=== PATIENT | male | born 1935 | race Caucasian/White ===

== ENCOUNTER 2017-12-17 11:59 | Observation (INO) | payer MEDICARE ==
[2017-12-17] MEDS ORDERED: NITROGLYCERIN OINT 1 INCH/GM PACKET TOPICAL STA (12:24)
[2017-12-17] MEDS ORDERED: ASPIRIN 81 MG PO STA (12:24)
--- NOTE | 2017-12-17 12:27 | ED ---
General Adult HPI - General Chief complaint: Chest Pain Stated complaint: Chest Pain Time Seen by Provider: 12/17/17 12:08 Source: patient, EMS, RN notes reviewed Mode of arrival: EMS Limitations: no limitations - History of Present Illness Initial comments: Patient is a pleasant 81-year-old male presenting to the emergency department and plan of chest discomfort. Symptoms have now resolved. Patient states symptoms lasted less than a minute. Patient had indigestion in his chest. Patient states it was on the left side however previous report stated he complained of right-sided chest discomfort. Patient is unclear what he was doing at time of onset. No associated dyspnea, nausea, or diaphoresis. No history of similar symptoms previously. No leg pain or leg swelling. - Related Data Home Medications Medication Instructions Recorded Confirmed Acetaminophen [Tylenol] 500 mg PO Q6H PRN 11/22/17 12/17/17 Aspirin EC [Ecotrin] 325 mg PO HS 11/22/17 12/17/17 Atorvastatin [Lipitor] 20 mg PO HS 11/22/17 12/17/17 Calcium Carbonate [Tums] 1,000 mg PO TID PRN 11/22/17 12/17/17 Donepezil [Aricept] 5 mg PO HS 11/22/17 12/17/17 Fexofenadine HCl 180 mg PO DAILY 11/22/17 12/17/17 Furosemide [Lasix] 40 mg PO DAILY 11/22/17 12/17/17 Gemfibrozil [Lopid] 600 mg PO BID@0700,1600 11/22/17 12/17/17 Lisinopril [Zestril] 20 mg PO DAILY 11/22/17 12/17/17 Melatonin 5 mg PO HS 11/22/17 12/17/17 Metoprolol Succinate (ER) [Toprol 50 mg PO DAILY 11/22/17 12/17/17 XL] Multivit-Min/FA/Lycopen/Lutein 1 tab PO DAILY@1100 11/22/17 12/17/17 [Centrum Silver Tablet] Omeprazole 20 mg PO DAILY@0600 11/22/17 12/17/17 Ondansetron HCl [Zofran] 4 mg PO Q8H PRN 11/22/17 12/17/17 Potassium Chloride [K-Tab ER] 10 meq PO DAILY@1100 11/22/17 12/17/17 Sucralfate [Carafate] 1 gm PO ACHS 11/22/17 12/17/17 Previous Rx's Medication Instructions Recorded Ipratropium-Albuterol Nebulize 3 ml INHALATION RT-QID #120 11/27/17 [Duoneb 0.5 mg-3 mg/3 ml Soln] ampul.neb Montelukast [Singulair] 10 mg PO HS #30 tab 11/27/17 Allergies Allergy/AdvReac Type Severity Reaction Status Date / Time allopurinol Allergy Rash/Hives Verified 12/17/17 12:19 Penicillins Allergy Unknown Verified 12/17/17 12:19 Sulfa (Sulfonamide Allergy Unknown Verified 12/17/17 12:19 Antibiotics) Review of Systems ROS Statement: Those systems with pertinent positive or pertinent negative responses have been documented in the HPI. ROS Other: All systems not noted in ROS Statement are negative. Constitutional: Denies: fever Eyes: Denies: eye pain ENT: Denies: ear pain Respiratory: Denies: cough, dyspnea Cardiovascular: Reports: chest pain. Denies: palpitations Endocrine: Denies: fatigue Gastrointestinal: Denies: abdominal pain Genitourinary: Denies: dysuria Musculoskeletal: Denies: back pain Skin: Denies: rash Neurological: Denies: weakness Past Medical History Past Medical History: Coronary Artery Disease (CAD), Dementia, Hyperlipidemia, Hypertension History of Any Multi-Drug Resistant Organisms: None Reported Additional Past Surgical History / Comment(s): Hole in heart repaired Past Psychological History: No Psychological Hx Reported Smoking Status: Never smoker Past Alcohol Use History: None Reported Past Drug Use History: None Reported - Past Family History Brother(s) Family Medical History: Hypertension General Exam Limitations: no limitations General appearance: alert, in no apparent distress Head exam: Present: atraumatic Eye exam: Present: normal appearance, PERRL ENT exam: Present: normal oropharynx Neck exam: Present: normal inspection Respiratory exam: Present: normal lung sounds bilaterally Cardiovascular Exam: Present: regular rate, normal rhythm, systolic murmur Expanded Peripheral pulses: 2+: Radial (R), Radial (L), Posterior Tibialis (R), Posterior Tibialis (L) GI/Abdominal exam: Present: soft. Absent: tenderness Extremities exam: Present: normal inspection. Absent: pedal edema, calf tenderness Neurological exam: Present: alert Psychiatric exam: Present: normal affect, normal mood Skin exam: Present: normal color Course Vital Signs 12/17/17 12/17/17 12/17/17 12:01 12:12 13:30 Temperature 97.1 F L Pulse Rate 92 94 Pulse Rate [ 92 Pathological Technician ] Respiratory 18 18 Rate Blood Pressure 140/92 118/77 O2 Sat by Pulse 95 99 Oximetry EKG Findings - EKG Comments: EKG Findings:: normal sinus rhythm 98. ME 188. QRS 106. QT 358. QTC 457. Left axis. LVH criteria. No acute ST change. Medical Decision Making - Medical Decision Making patient reevaluated and resting comfortably in bed. Patient symptom-free at this time. Patient and family updated on results and plan. Case was discussed in detail with Dr. Parks, who will admit for Dr. Schmidt. She does request consult with cardiology and heparin. - Lab Data Result diagrams: 12/17/17 12:09 12/17/17 12:09 Lab Results 12/17/17 12/17/17 12/17/17 Range/Units 12:09 12:09 12:09 WBC 6.1 (3.8-10.6) k/uL RBC 4.71 (4.30-5.90) m/uL Hgb 15.2 (13.0-17.5) gm/dL Hct 45.5 (39.0-53.0) % MCV 96.6 (80.0-100.0) fL MCH 32.3 (25.0-35.0) pg MCHC 33.5 (31.0-37.0) g/dL RDW 13.9 (11.5-15.5) % Plt Count 266 (150-450) k/uL Neutrophils % 63 % Lymphocytes % 19 % Monocytes % 6 % Eosinophils % 7 % Basophils % 1 % Neutrophils # 3.9 (1.3-7.7) k/uL Lymphocytes # 1.2 (1.0-4.8) k/uL Monocytes # 0.4 (0-1.0) k/uL Eosinophils # 0.5 (0-0.7) k/uL Basophils # 0.1 (0-0.2) k/uL PT (9.0-12.0) sec INR (<1.2) APTT (22.0-30.0) sec D-Dimer (<0.60) mg/L FEU Sodium 141 (137-145) mmol/L Potassium 4.1 (3.5-5.1) mmol/L Chloride 98 (98-107) mmol/L Carbon Dioxide 31 H (22-30) mmol/L Anion Gap 12 mmol/L BUN 25 H (9-20) mg/dL Creatinine 1.17 (0.66-1.25) mg/dL Est GFR (MDRD) Af Amer >60 (>60 ml/min/1.73 sqM) Est GFR (MDRD) Non-Af 60 (>60 ml/min/1.73 sqM) Glucose 106 H (74-99) mg/dL Calcium 10.7 H (8.4-10.2) mg/dL Magnesium 1.7 (1.6-2.3) mg/dL Total Bilirubin 0.6 (0.2-1.3) mg/dL AST 26 (17-59) U/L ALT 31 (21-72) U/L Alkaline Phosphatase 89 (38-126) U/L Total Creatine Kinase 38 L (55-170) U/L CK-MB (CK-2) 0.4 (0.0-2.4) ng/mL CK-MB (CK-2) Rel Index 1.1 Troponin I <0.012 (0.000-0.034) ng/mL Total Protein 7.0 (6.3-8.2) g/dL Albumin 4.1 (3.5-5.0) g/dL 12/17/17 Range/Units 12:09 WBC (3.8-10.6) k/uL RBC (4.30-5.90) m/uL Hgb (13.0-17.5) gm/dL Hct (39.0-53.0) % MCV (80.0-100.0) fL MCH (25.0-35.0) pg MCHC (31.0-37.0) g/dL RDW (11.5-15.5) % Plt Count (150-450) k/uL Neutrophils % % Lymphocytes % % Monocytes % % Eosinophils % % Basophils % % Neutrophils # (1.3-7.7) k/uL Lymphocytes # (1.0-4.8) k/uL Monocytes # (0-1.0) k/uL Eosinophils # (0-0.7) k/uL Basophils # (0-0.2) k/uL PT 12.2 H (9.0-12.0) sec INR 1.3 H (<1.2) APTT 28.3 (22.0-30.0) sec D-Dimer 0.57 (<0.60) mg/L FEU Sodium (137-145) mmol/L Potassium (3.5-5.1) mmol/L Chloride (98-107) mmol/L Carbon Dioxide (22-30) mmol/L Anion Gap mmol/L BUN (9-20) mg/dL Creatinine (0.66-1.25) mg/dL Est GFR (MDRD) Af Amer (>60 ml/min/1.73 sqM) Est GFR (MDRD) Non-Af (>60 ml/min/1.73 sqM) Glucose (74-99) mg/dL Calcium (8.4-10.2) mg/dL Magnesium (1.6-2.3) mg/dL Total Bilirubin (0.2-1.3) mg/dL AST (17-59) U/L ALT (21-72) U/L Alkaline Phosphatase (38-126) U/L Total Creatine Kinase (55-170) U/L CK-MB (CK-2) (0.0-2.4) ng/mL CK-MB (CK-2) Rel Index Troponin I (0.000-0.034) ng/mL Total Protein (6.3-8.2) g/dL Albumin (3.5-5.0) g/dL - Radiology Data Radiology results: report reviewed (chest x-ray is unable to be visualized. Radiology report: Correlate for atelectasis versus scarring versus pneumonia.) Disposition Clinical Impression: Chest pain Disposition: ADMITTED IP TO THIS [facility] Referrals: Chava Schmidt MD [Primary Care Provider] - 1-2 days Decision Time: 14:18
[2017-12-17 12:55] LABS: Basophils # (A) 0.1 k/uL (0-0.2); Basophils % (A) 1 %; Eosinophils # (A) 0.5 k/uL (0-0.7); Eosinophils % (A) 7 %; HCT 45.5 % (39.0-53.0); HGB 15.2 gm/dL (13.0-17.5); Lymphocytes # (A) 1.2 k/uL (1.0-4.8); Lymphocytes % (A) 19 %; MCH 32.3 pg (25.0-35.0); MCHC 33.5 g/dL (31.0-37.0); MCV 96.6 fL (80.0-100.0); Mean Platelet Volume 7.4; Monocytes # (A) 0.4 k/uL (0-1.0); Monocytes % (A) 6 %; Neutrophils # (A) 3.9 k/uL (1.3-7.7); Neutrophils % (A) 63 %; Platelet Count 266 k/uL (150-450); RBC 4.71 m/uL (4.30-5.90); RDW 13.9 % (11.5-15.5); WBC 6.1 k/uL (3.8-10.6)
[2017-12-17 13:06] LABS: D-Dimer 0.57 mg/L FEU (<0.60)
[2017-12-17 13:10] LABS: INR 1.3 (<1.2); Partial Thromboplastin Time 28.3 sec (22.0-30.0); Prothrombin Time 12.2 sec (9.0-12.0)
[2017-12-17 13:12] LABS: Creatine Kinase 38 U/L (55-170)
[2017-12-17 13:13] LABS: ALT 31 U/L (21-72); AST 26 U/L (17-59); Albumin 4.1 g/dL (3.5-5.0); Alkaline Phosphatase 89 U/L (38-126); Anion Gap 12 mmol/L; Blood Urea Nitrogen 25 mg/dL (9-20); Calcium 10.7 mg/dL (8.4-10.2); Carbon Dioxide 31 mmol/L (22-30); Chloride 98 mmol/L (98-107); Glucose 106 mg/dL (74-99); Magnesium 1.7 mg/dL (1.6-2.3); Potassium 4.1 mmol/L (3.5-5.1); Sodium 141 mmol/L (137-145); Total Bilirubin 0.6 mg/dL (0.2-1.3)
[2017-12-17 13:26] LABS: Creatine Kinase MB 0.4 ng/mL (0.0-2.4); Troponin I <0.012 ng/mL (0.000-0.034)
--- NOTE | 2017-12-17 13:33 | XR ---
EXAMINATION TYPE: XR chest 2V DATE OF EXAM: 12/17/2017 COMPARISON: Prior chest x-ray 11/24/2017, chest CT 11/25/2017 HISTORY: Chest pain TECHNIQUE: Frontal and lateral views of the chest are obtained. FINDINGS: There is no pleural effusion or pneumothorax seen. Chronic elevation right hemidiaphragm is again noted. Patient is rotated. There are overlying cardiac leads. Patchy basilar density may ref lect atelectasis or scarring. The cardiac silhouette size is stable. Atrial septal defect closure dev ice is in place. The osseous structures are intact. IMPRESSION: Correlate for basilar atelectasis or scarring versus pneumonia.
[2017-12-17] MEDS ORDERED: HEPARIN SODIUM,PORCINE 5,000 UNIT/ML 1 ML VIAL IV PRN (14:18)
[2017-12-17] MEDS ORDERED: NITROGLYCERIN SL TABS 0.4 MG TAB SUBLINGUAL PRN (14:18)
[2017-12-17] MEDS ORDERED: HEPARIN SODIUM,PORCINE 5,000 UNIT/ML 1 ML VIAL IV ONE (14:18)
[2017-12-17] MEDS ORDERED: HEPARIN SOD,PORK IN 0.45% NACL 25,000 UNIT in 0.45% NACL 1 500ML.BAG IV SCH (14:30)
[2017-12-17] MEDS ORDERED: ACETAMINOPHEN TAB 500 MG TAB PO PRN (17:40)
[2017-12-17] MEDS ORDERED: CALCIUM CARBONATE 500 MG CHEWABLE PO PRN (17:40)
[2017-12-17] MEDS ORDERED: ONDANSETRON 4 MG TAB PO PRN (17:40)
[2017-12-17] MEDS ORDERED: MAG HYDROX/AL HYDROX/SIMETH 30 ML, HYOSCYAMINE ELIXIR 10 ML, CIMETIDINE HCL 300 MG, LID... PO PRN ×4 (17:49)
[2017-12-17] MEDS ORDERED: IPRATROPIUM-ALBUTEROL 3 ML NEB INHALATION PRN (17:49)
--- NOTE | 2017-12-17 17:52 | P.HPIM ---
History of Present Illness H&P Date: 12/17/17 Chief Complaint: chest pain 81 years old male patient of Dr. 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 Staff present at bedside stated that patient was holding his chest. Symptoms started less than a minute but due to concern of ACS patient was brought to the ER. Patient does have significant reflux and is unclear if it is related to it. He is unable to provide any history at [id number] was called who stated that patient was doing well prior to this chest pain.troponin 1 is negative. EKG is negative for any ST or T-wave changes and some ST depression seen in lead 3. Patient will be admitted in observation. Cardiology consult placed Review of Systems Constitutional: Denies chills, Denies fever, Denies lethargy, Denies malaise, Denies poor appetite, Denies weakness, Denies weight loss Eyes: denies decreased vision, denies diplopia, denies discharge, denies pain Ears: deny: decreased hearing Ears, nose, mouth and throat: Denies dental pain, Denies headache, Denies nasal discharge, Denies nose pain Cardiovascular: endorseschest pain, Denies decreased exercise tolerance, Denies edema, Denies high blood pressure, Denies irregular heart beat, Denies palpitations, Denies paroxysmal nocturnal dyspnea, Denies rapid heart beat, Denies shortness of breath Respiratory: Denies congestion, Denies cough, Denies cough with sputum, Denies dyspnea, Denies home oxygen, Denies wheezing Gastrointestinal: Denies abdominal pain, Denies change in bowel habits, Denies coffee ground emesis, Denies early satiety, , Denies hematemesis, Denies hematochezia, Denies loss of appetite, Denies nausea, Denies vomitingendorses heartburn Genitourinary: Denies dysuria, Denies flank pain, Denies kidney stones, Denies menorrhagia, Denies urgency, Denies urinary frequency Musculoskeletal: Denies gait dysfunction, Denies limitation of motion, Denies morning stiffness, Denies muscle cramps Integumentary: Denies rash, Denies wounds, Denies brittle nails, Denies change in hair/nails, Denies darkening of skin Neurological: Denies balance difficulties, Denies change in speech, Denies double vision, Denies gait dysfunction, Denies loss of vision, Denies motor disturbance, Denies numbness, Denies paralysis, Denies paresthesias, Denies seizures Psychiatric: Denies anxiety, Denies depression Endocrine: Denies excessive sweating, Denies excessive thirst, Denies high blood sugars, Denies palpitations Hematologic/Lymphatic: Denies easy bruising, Denies lymphadenopathy Past Medical History Past Medical History: Coronary Artery Disease (CAD), Cancer, Dementia, GERD/ Reflux, Hyperlipidemia, Hypertension, Osteoarthritis (OA), Pneumonia Additional Past Medical History / Comment(s): hx pfo-had sx,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 gout-allergy to allopurinol, bronchitis, psoriases, prostate cancer 2002(sx and thinks he had raditation ), urinary incont wears a brief. 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 prostatectomy,catarcats Past Anesthesia/Blood Transfusion Reactions: No Reported Reaction Smoking Status: Former smoker - Past Family History Brother(s) Family Medical History: Hypertension Father Family Medical History: Congestive Heart Failure (CHF), Hyperlipidemia, Hypertension, Myocardial Infarction ([place]) Mother Family Medical History: Congestive Heart Failure (CHF), Hyperlipidemia, Hypertension, Myocardial Infarction ([place]) Medications and Allergies Home Medications Medication Instructions Recorded Confirmed Type Acetaminophen [Tylenol] 500 mg PO Q6H PRN 11/22/17 12/17/17 History Aspirin EC [Ecotrin] 325 mg PO HS 11/22/17 12/17/17 History Atorvastatin [Lipitor] 20 mg PO HS 11/22/17 12/17/17 History Calcium Carbonate [Tums] 1,000 mg PO TID PRN 11/22/17 12/17/17 History Donepezil [Aricept] 5 mg PO HS 11/22/17 12/17/17 History Fexofenadine HCl 180 mg PO DAILY 11/22/17 12/17/17 History Furosemide [Lasix] 40 mg PO DAILY 11/22/17 12/17/17 History Gemfibrozil [Lopid] 600 mg PO BID@0700,1600 11/22/17 12/17/17 History Lisinopril [Zestril] 20 mg PO DAILY 11/22/17 12/17/17 History Melatonin 5 mg PO HS 11/22/17 12/17/17 History Metoprolol Succinate (ER) [Toprol 50 mg PO DAILY 11/22/17 12/17/17 History XL] Multivit-Min/FA/Lycopen/Lutein 1 tab PO DAILY@1100 11/22/17 12/17/17 History [Centrum Silver Tablet] Omeprazole 20 mg PO DAILY@0600 11/22/17 12/17/17 History Ondansetron HCl [Zofran] 4 mg PO Q8H PRN 11/22/17 12/17/17 History Potassium Chloride [K-Tab ER] 10 meq PO DAILY@1100 11/22/17 12/17/17 History Sucralfate [Carafate] 1 gm PO ACHS 11/22/17 12/17/17 History Ipratropium-Albuterol Nebulize 3 ml INHALATION RT-QID #120 11/27/17 12/17/17 Rx [Duoneb 0.5 mg-3 mg/3 ml Soln] ampul.neb Montelukast [Singulair] 10 mg PO HS #30 tab 11/27/17 12/17/17 Rx Allergies Allergy/AdvReac Type Severity Reaction Status Date / Time allopurinol Allergy Rash/Hives Verified 12/17/17 12:19 Penicillins Allergy Unknown Verified 12/17/17 12:19 Sulfa (Sulfonamide Allergy Unknown Verified 12/17/17 12:19 Antibiotics) Physical Exam Vitals: Vital Signs Temp Pulse Pulse Resp BP Pulse Ox 12/17/17 15:35 87 16 108/73 95 12/17/17 14:30 91 16 116/78 96 12/17/17 13:30 94 18 118/77 99 12/17/17 12:12 92 12/17/17 12:01 97.1 F L 92 18 140/92 95 Intake and Output 12/17/17 12/17/17 12/17/17 06:59 14:59 22:59 Other: Weight 77.111 kg Patient Weight 12/18/17 06:59 Weight 77.111 kg - Constitutional General appearance: cooperative, no acute distress, obese - EENT Eyes: anicteric sclerae, PERRLA, normal appearance ENT: hearing grossly normal - Neck Neck: no lymphadenopathy, normal ROM, no other, no rigidity, no stridor, no thyromegaly - Respiratory Respiratory: bilateral: CTA, negative: diminished, dullness, rales, rhonchi - Cardiovascular Rhythm: regular Heart sounds: normal: S1, S2 Abnormal Heart Sounds: no systolic murmur, no diastolic murmur, no rub, no S3 Gallop, no S4 Gallop, no click, no other - Gastrointestinal General gastrointestinal: normal bowel sounds, soft - Integumentary Integumentary: no rash - Neurologic Neurologic: CNII-XII intact - Musculoskeletal Musculoskeletal: strength equal bilaterally - Psychiatric Psychiatric: A&O x's 3, appropriate affect Results CBC & Chem 7: 12/17/17 12:09 12/17/17 12:09 Labs: Abnormal Lab Results - Last 24 Hours (Table) 12/17/17 12/17/17 12/17/17 Range/Units 12:09 12:09 12:09 PT 12.2 H (9.0-12.0) sec INR 1.3 H (<1.2) Carbon Dioxide 31 H (22-30) mmol/L BUN 25 H (9-20) mg/dL Glucose 106 H (74-99) mg/dL Calcium 10.7 H (8.4-10.2) mg/dL Total Creatine Kinase 38 L (55-170) U/L Thrombosis Risk Factor Assmnt - DVT/VTE Prophylaxis DVT/VTE Prophylaxis: Pharmacologic Prophylaxis ordered Assessment and Plan Plan: #1 acute chest pain likely atypical. But due to patient's risk factors including hypertension and hyperlipidemia there is calcification and chest CT concerning for coronary artery disease patient will be monitored overnight with troponin repeat EKG in the morning and an echocardiogram. Cardiology consult placed #2 diffuse petechial rash resolved #3 hypertension continue lisinopril #4 coronary artery disease continue metoprolol, aspirin, statin, lisinopril #5 Hyperlipidemia continue atorvastatin 20 mg daily and gemfibrozil 600 mg twice daily #6 Vascular dementia secondary to recurrent stroke #7 short-term memory loss secondary to vascular dementia #8 DVT prophylaxis with heparin every 12 #9 GI prophylaxis with omeprazole 20 mg daily
--- NOTE | 2017-12-17 19:06 | P.CRDCN ---
History of Present Illness Consult date: 12/17/17 Chief complaint: chest pain History of present illness: This is a pleasant 81-year-old male patient with a past medical history significant for hypertension, dyslipidemia, underlying dementia, presented to the hospital complaining of chest discomfort. The patient does have underlying dementia of unknown severity but he seems to be slightly confused when I encountered him tonight. He stated that he was in his usual state of health until early this morning when he ate his breakfast and subsequently started experiencing chest discomfort. He described the discomfort as a burning sensation in the mid of the chest with some radiation to the back. No associated symptoms of shortness of breath, sweating, dizziness or lightheadedness, or syncope. The patient is not aware of any prior history of coronary artery disease. The EKG showed sinus rhythm without any significant ST or T-wave abnormalities. He does have some nonspecific changes inferiorly. The chest x-ray did not show any acute abnormalities. The cardiac enzymes were checked and the first set of troponin came in to be unremarkable but we don't have the subsequent 2 sets of troponin at this point.The patient does have an atrial septal occluder device was identified on the chest x-ray. On physical examination he seems to be slightly confused. No reproducible chest pain. Systolic murmur was identified as well. 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 gout-allergy to allopurinol, bronchitis, psoriases, prostate cancer 2002(sx and thinks he had raditation ), urinary incont wears a brief. 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 prostatectomy,catarcats Past Anesthesia/Blood Transfusion Reactions: No Reported Reaction Smoking Status: Former smoker - Past Family History Brother(s) Family Medical History: Hypertension Father Family Medical History: Congestive Heart Failure (CHF), Hyperlipidemia, Hypertension, Myocardial Infarction ([place]) Mother Family Medical History: Congestive Heart Failure (CHF), Hyperlipidemia, Hypertension, Myocardial Infarction ([place]) Medications and Allergies Home Medications Medication Instructions Recorded Confirmed Type Acetaminophen [Tylenol] 500 mg PO Q6H PRN 11/22/17 12/17/17 History Aspirin EC [Ecotrin] 325 mg PO HS 11/22/17 12/17/17 History Atorvastatin [Lipitor] 20 mg PO HS 11/22/17 12/17/17 History Calcium Carbonate [Tums] 1,000 mg PO TID PRN 11/22/17 12/17/17 History Donepezil [Aricept] 5 mg PO HS 11/22/17 12/17/17 History Fexofenadine HCl 180 mg PO DAILY 11/22/17 12/17/17 History Furosemide [Lasix] 40 mg PO DAILY 11/22/17 12/17/17 History Gemfibrozil [Lopid] 600 mg PO BID@0700,1600 11/22/17 12/17/17 History Lisinopril [Zestril] 20 mg PO DAILY 11/22/17 12/17/17 History Melatonin 5 mg PO HS 11/22/17 12/17/17 History Metoprolol Succinate (ER) [Toprol 50 mg PO DAILY 11/22/17 12/17/17 History XL] Multivit-Min/FA/Lycopen/Lutein 1 tab PO DAILY@1100 11/22/17 12/17/17 History [Centrum Silver Tablet] Omeprazole 20 mg PO DAILY@0600 11/22/17 12/17/17 History Ondansetron HCl [Zofran] 4 mg PO Q8H PRN 11/22/17 12/17/17 History Potassium Chloride [K-Tab ER] 10 meq PO DAILY@1100 11/22/17 12/17/17 History Sucralfate [Carafate] 1 gm PO ACHS 11/22/17 12/17/17 History Ipratropium-Albuterol Nebulize 3 ml INHALATION RT-QID #120 11/27/17 12/17/17 Rx [Duoneb 0.5 mg-3 mg/3 ml Soln] ampul.neb Montelukast [Singulair] 10 mg PO HS #30 tab 11/27/17 12/17/17 Rx Allergies Allergy/AdvReac Type Severity Reaction Status Date / Time allopurinol Allergy Rash/Hives Verified 12/17/17 12:19 Penicillins Allergy Unknown Verified 12/17/17 12:19 Sulfa (Sulfonamide Allergy Unknown Verified 12/17/17 12:19 Antibiotics) Physical Exam Vitals: Vital Signs Temp Pulse Pulse Pulse Resp BP BP 12/17/17 18:46 97.6 F 97 16 143/95 12/17/17 18:00 97.9 F 81 16 145/89 12/17/17 15:35 87 16 108/73 12/17/17 14:30 91 16 116/78 12/17/17 13:30 94 18 118/77 12/17/17 12:12 92 12/17/17 12:01 97.1 F L 92 18 140/92 Pulse Ox 12/17/17 18:46 93 L 12/17/17 18:00 96 12/17/17 15:35 95 12/17/17 14:30 96 12/17/17 13:30 99 12/17/17 12:12 12/17/17 12:01 95 Intake and Output 12/17/17 12/17/17 12/17/17 06:59 14:59 22:59 Other: Weight 77.111 kg Patient Weight 12/18/17 06:59 Weight 77.111 kg - Constitutional General appearance: no acute distress - Respiratory Respiratory: bilateral: rales - Cardiovascular Rhythm: regular Heart sounds: normal: S1, S2 Abnormal Heart Sounds: systolic murmur Results 12/17/17 12:09 12/17/17 12:09 Cardiac Enzymes 12/17/17 12/17/17 Range/Units 12:09 12:09 AST 26 (17-59) U/L CK-MB (CK-2) 0.4 (0.0-2.4) ng/mL Troponin I <0.012 (0.000-0.034) ng/mL Coagulation 12/17/17 Range/Units 12:09 PT 12.2 H (9.0-12.0) sec APTT 28.3 (22.0-30.0) sec CBC 12/17/17 Range/Units 12:09 WBC 6.1 (3.8-10.6) k/uL RBC 4.71 (4.30-5.90) m/uL Hgb 15.2 (13.0-17.5) gm/dL Hct 45.5 (39.0-53.0) % Plt Count 266 (150-450) k/uL Comprehensive Metabolic Panel 12/17/17 Range/Units 12:09 Sodium 141 (137-145) mmol/L Potassium 4.1 (3.5-5.1) mmol/L Chloride 98 (98-107) mmol/L Carbon Dioxide 31 H (22-30) mmol/L BUN 25 H (9-20) mg/dL Creatinine 1.17 (0.66-1.25) mg/dL Glucose 106 H (74-99) mg/dL Calcium 10.7 H (8.4-10.2) mg/dL AST 26 (17-59) U/L ALT 31 (21-72) U/L Alkaline Phosphatase 89 (38-126) U/L Total Protein 7.0 (6.3-8.2) g/dL Albumin 4.1 (3.5-5.0) g/dL Current Medications Generic Name Dose Route Start Last Admin Trade Name Freq PRN Reason Stop Dose Admin Acetaminophen 500 mg 12/17/17 17:40 Tylenol Tab PO Q6H PRN Mild Pain Albuterol/Ipratropium 3 ml 12/17/17 20:00 Duoneb 0.5 Mg-3 Mg/3 Ml Soln INHALATION RT-QID [facility] Albuterol/Ipratropium 3 ml 12/17/17 17:49 Duoneb 0.5 Mg-3 Mg/3 Ml Soln INHALATION RT-QID PRN Shortness Of Breath Aspirin 325 mg 12/17/17 21:00 Aspirin PO HS [facility] Atorvastatin Calcium 40 mg 12/17/17 21:00 Lipitor PO HS [facility] Calcium Carbonate/Glycine 1,000 mg 12/17/17 17:40 Tums PO TID PRN GERD Al Hydroxide/Mg Hydroxide 30 0 ml 12/17/17 17:49 ml/ Hyoscyamine 10 ml/ PO Cimetidine HCl 300 mg/ Q6HR PRN Lidocaine HCl 10 ml Heartburn Donepezil HCl 5 mg 12/17/17 21:00 Aricept PO HS [facility] Furosemide 40 mg 12/18/17 09:00 Lasix PO DAILY [facility] Gemfibrozil 600 mg 12/18/17 07:00 Lopid PO BID@0700,1600 [facility] Guaifenesin 600 mg 12/17/17 21:00 Mucinex PO Q12HR [facility] Heparin Sodium (Porcine) 5,000 unit 12/17/17 21:00 Heparin SQ Q12HR [facility] Lisinopril 20 mg 12/18/17 09:00 Zestril PO DAILY [facility] Loratadine 10 mg 12/18/17 09:00 Claritin PO DAILY [facility] Melatonin 5 mg 12/17/17 21:00 Melatonin PO HS [facility] Metoprolol Succinate 50 mg 12/17/17 17:45 Toprol Xl PO DAILY [facility] Montelukast Sodium 10 mg 12/17/17 21:00 Singulair PO HS [facility] Multivitamins 1 each 12/18/17 12:00 Theragran PO DAILY@1200 [facility] Nitroglycerin 0.5 inch 12/17/17 18:00 Nitro-Bid Oint TOPICAL Q6HR [facility] Nitroglycerin 0.4 mg 12/17/17 14:18 Nitrostat SUBLINGUAL Q5M PRN Chest Pain Ondansetron HCl 4 mg 12/17/17 17:40 Zofran PO Q8H PRN Nausea Pantoprazole Sodium 40 mg 12/18/17 07:30 Protonix PO AC-BRKFST [facility] Potassium Chloride 10 meq 12/18/17 11:00 K-Dur 10 PO DAILY@1100 [facility] Sucralfate 1 gm 12/17/17 21:00 Carafate PO ACHS RAFAEL Intake and Output 12/17/17 12/17/17 12/17/17 06:59 14:59 22:59 Other: Weight 77.111 kg Patient Weight 12/18/17 06:59 Weight 77.111 kg 12/17/17 12:09 12/17/17 12:09 Assessment and Plan Assessment: we will rule out an acute coronary event and follow-up with the serial cardiac enzymes. Beside that I will obtain an echocardiogram was Doppler. We'll keep the patient for additional 24 hour for monitoring. Repeat the EKG in the morning. Overall a conservative medical approach for this 81-year-old gentleman with underlying dementia. Thank you for allowing us participate in his care and we'll continue following up with him.
[2017-12-17] MEDS: NITROGLYCERIN OINT 1 INCH/GM PACKET TOPICAL SCH (19:38)
[2017-12-17] MEDS: METOPROLOL SUCCINATE (ER) 50 MG TAB.ER.24H PO SCH (19:38)
[2017-12-17] MEDS: IPRATROPIUM-ALBUTEROL 3 ML NEB INHALATION SCH (20:09)
[2017-12-17 20:36] LABS: Creatine Kinase 39 U/L (55-170)
[2017-12-17 20:48] LABS: Creatine Kinase MB 0.3 ng/mL (0.0-2.4); Troponin I <0.012 ng/mL (0.000-0.034)
[2017-12-17] MEDS ORDERED: ATORVASTATIN 40 MG TAB PO SCH (21:00)
[2017-12-17] MEDS ORDERED: MONTELUKAST 10 MG TAB PO SCH (21:00)
[2017-12-17] MEDS ORDERED: MELATONIN 5 MG TABLET PO SCH (21:00)
[2017-12-17] MEDS ORDERED: DONEPEZIL 5 MG TAB PO SCH (21:00)
[2017-12-17] MEDS ORDERED: ASPIRIN 325 MG TAB PO SCH (21:00)
[2017-12-17] MEDS: HEPARIN SODIUM,PORCINE 5,000 UNIT/ML 1 ML VIAL SQ SCH ×2 (21:52→22:08)
[2017-12-17] MEDS: SUCRALFATE 1 GM TAB PO SCH ×2 (21:52→22:08)
[2017-12-17] MEDS: guaiFENesin 600 MG TABLET.ER PO SCH (21:52)
[2017-12-18] MEDS: NITROGLYCERIN OINT 1 INCH/GM PACKET TOPICAL SCH ×3 (00:21→11:55)
[2017-12-18 00:22] VITALS: RESP 18
[2017-12-18 02:39] LABS: Mean Platelet Volume 6.9; Platelet Count 262 k/uL (150-450)
[2017-12-18 02:54] LABS: Cholesterol 150 mg/dL (<200); HDL Cholesterol 22 mg/dL (40-60); LDL Cholesterol,Calculated 62 mg/dL (0-99); Triglycerides 329 mg/dL (<150)
[2017-12-18 03:02] LABS: Creatine Kinase 47 U/L (55-170)
[2017-12-18 03:16] LABS: Creatine Kinase MB 0.4 ng/mL (0.0-2.4); Troponin I <0.012 ng/mL (0.000-0.034)
[2017-12-18] MEDS ORDERED: GEMFIBROZIL 600 MG TAB PO SCH (07:00)
[2017-12-18] MEDS: IPRATROPIUM-ALBUTEROL 3 ML NEB INHALATION SCH ×3 (07:14→15:09)
[2017-12-18] MEDS ORDERED: PANTOPRAZOLE 40 MG TABLET PO SCH (07:30)
[2017-12-18] MEDS ORDERED: FUROSEMIDE 40 MG TAB PO SCH (09:00)
[2017-12-18] MEDS ORDERED: LISINOPRIL 20 MG TAB PO SCH (09:00)
[2017-12-18] MEDS ORDERED: LORATADINE 10 MG TAB PO SCH (09:00)
[2017-12-18] MEDS ORDERED: ASPIRIN 325 MG TAB PO SCH (09:00)
[2017-12-18] MEDS: guaiFENesin 600 MG TABLET.ER PO SCH (09:53)
[2017-12-18] MEDS: HEPARIN SODIUM,PORCINE 5,000 UNIT/ML 1 ML VIAL SQ SCH (09:53)
[2017-12-18] MEDS: METOPROLOL SUCCINATE (ER) 50 MG TAB.ER.24H PO SCH (10:14)
[2017-12-18] MEDS ORDERED: POTASSIUM CHLORIDE ER 10 MEQ TAB.ER.PRT PO SCH (11:00)
[2017-12-18] MEDS: SUCRALFATE 1 GM TAB PO SCH (11:23)
[2017-12-18 11:38] VITALS: BP 97/58; TEMP 97.5
[2017-12-18] MEDS ORDERED: MULTIVITAMINS, THERA 1 EACH TAB PO SCH (12:00)
--- NOTE | 2017-12-18 13:10 | P.DS ---
Providers Date of admission: 12/17/17 14:18 Expected date of discharge: 12/18/17 Attending physician: Maurice Guajardo MD Consults: 12/17/17 14:18 Consult Physician Urgent Consulting Provider: Cornelia Lewis Consult Reason/Comments: cp Do you want consulting provider notified?: Yes Primary care physician: [facility] Course: 81 years old male patient of Dr. 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 Staff present at bedside stated that patient was holding his chest. Symptoms started less than a minute but due to concern of ACS patient was brought to the ER. Patient does have significant reflux and is unclear if it is related to it. He is unable to provide any history at [id number] was called who stated that patient was doing well prior to this chest pain.troponin 1 is negative. EKG is negative for any ST or T-wave changes and some ST depression seen in lead 3. Patient will be admitted in observation. Cardiology consult placed 12/18: Patient has been seen by Dr. Mccormick with recommendations for serial enzymes , echocardiogram and monitor overnight with repeat EKG in the morning. Plan is for conservative management. Repeat troponins have been negative on 3 draws. Triglycerides 329, cholesterol 150, LDL 62 and HDL 22. Heart rate has been running 70s to 80s. No change in EKG. Patient has been afebrile. Pulse ox is 95% on room air. Patient will be discharged home today in stable condition. Discharge diagnoses: 1 acute chest pain likely atypical. Acute coronary syndrome ruled out. 2 diffuse petechial rash resolved 3 hypertension 4 coronary artery disease 5 Hyperlipidemia 6 Vascular dementia secondary to recurrent stroke 7 short-term memory loss secondary to vascular dementia Discharge plan: Return home Impression and plan of care have been directed as dictated by the signing physician. Isha Alcantar nurse practitioner acting as scribe for signing physician. Patient Condition at Discharge: Good Plan - Discharge Summary Discharge Rx Participant: No New Discharge Prescriptions: Continue Ondansetron HCl [Zofran] 4 mg PO Q8H PRN PRN Reason: Nausea Calcium Carbonate [Tums] 1,000 mg PO TID PRN PRN Reason: GERD Acetaminophen [Tylenol] 500 mg PO Q6H PRN PRN Reason: Pain Omeprazole 20 mg PO DAILY@0600 Metoprolol Succinate (ER) [Toprol XL] 50 mg PO DAILY Gemfibrozil [Lopid] 600 mg PO BID@0700,1600 Melatonin 5 mg PO HS Lisinopril [Zestril] 20 mg PO DAILY Furosemide [Lasix] 40 mg PO DAILY Atorvastatin [Lipitor] 20 mg PO HS Potassium Chloride [K-Tab ER] 10 meq PO DAILY@1100 Multivit-Min/FA/Lycopen/Lutein [Centrum Silver Tablet] 1 tab PO DAILY@1100 Fexofenadine HCl 180 mg PO DAILY Aspirin EC [Ecotrin] 325 mg PO HS Donepezil [Aricept] 5 mg PO HS Sucralfate [Carafate] 1 gm PO ACHS Ipratropium-Albuterol Nebulize [Duoneb 0.5 mg-3 mg/3 ml Soln] 3 ml INHALATION RT-QID #120 ampul.neb Montelukast [Singulair] 10 mg PO HS #30 tab Discharge Medication List Acetaminophen [Tylenol] 500 mg PO Q6H PRN 11/22/17 [History] Aspirin EC [Ecotrin] 325 mg PO HS 11/22/17 [History] Atorvastatin [Lipitor] 20 mg PO HS 11/22/17 [History] Calcium Carbonate [Tums] 1,000 mg PO TID PRN 11/22/17 [History] Donepezil [Aricept] 5 mg PO HS 11/22/17 [History] Fexofenadine HCl 180 mg PO DAILY 11/22/17 [History] Furosemide [Lasix] 40 mg PO DAILY 11/22/17 [History] Gemfibrozil [Lopid] 600 mg PO BID@0700,1600 11/22/17 [History] Lisinopril [Zestril] 20 mg PO DAILY 11/22/17 [History] Melatonin 5 mg PO HS 11/22/17 [History] Metoprolol Succinate (ER) [Toprol XL] 50 mg PO DAILY 11/22/17 [History] Multivit-Min/FA/Lycopen/Lutein [Centrum Silver Tablet] 1 tab PO DAILY@1100 11/22 [History] Omeprazole 20 mg PO DAILY@0600 11/22/17 [History] Ondansetron HCl [Zofran] 4 mg PO Q8H PRN 11/22/17 [History] Potassium Chloride [K-Tab ER] 10 meq PO DAILY@1100 11/22/17 [History] Sucralfate [Carafate] 1 gm PO ACHS 11/22/17 [History] Ipratropium-Albuterol Nebulize [Duoneb 0.5 mg-3 mg/3 ml Soln] 3 ml INHALATION RT -QID #120 ampul.neb 11/27/17 [Rx] Montelukast [Singulair] 10 mg PO HS #30 tab 11/27/17 [Rx] Follow up Appointment(s)/Referral(s): Chava Schmidt MD [Primary Care Provider] - 1-2 days
--- NOTE | 2017-12-18 14:40 | ECHOF ---
Referral Reason:chest pain MEASUREMENTS -------- HEIGHT: 182.9 cm WEIGHT: 77.1 kg BP: 104/68 RVIDd: 2.9 cm (< 3.3) IVSd: 1.4 cm (0.6 - 1.1) LVIDd: 4.0 cm (3.9 - 5.3) LVPWd: 1.3 cm (0.6 - 1.1) IVSs: 1.8 cm LVIDs: 2.7 cm LVPWs: 1.7 cm LAESV Index (A-L): 13.02 ml/m Ao Diam: 3.3 cm (2.0 - 3.7) AV Cusp: 0.6 cm (1.5 - 2.6) LA Diam: 3.9 cm (2.7 - 3.8) MV E Ash: 0.95 m/s MV DecT: 202 ms MV A Ash: 0.00 m/s MV E/A Ratio: 211.84 AV maxP.11 mmHg AV meanP.67 mmHg RAP: 5.00 mmHg RVSP: 26.18 mmHg FINDINGS -------- Resting tachycardia (HR>100bpm). This was a technically difficult study with suboptimal views. The left ventricular size is normal. There is mild concentric left ventricular hypertrophy. Overa ll left ventricular systolic function is normal with, an EF between 60 - 65 %. The right ventricle is mild to moderately enlarged. The right ventricular systolic function is norm al. Normal LA size by volume 22+/-6 ml/m2. The right atrium is normal in size. 3.5ml of Lumason was utilized for enhancement of images. Aortic valve is trileaflet and is severely thickened. There is no evidence of aortic regurgitation. There is prwbijfl-rz-nylogb aortic stenosis present. Peak/mean gradient across the Aortic Valve is 63.11mmHg / 41.67mmHg. The mitral valve is normal. There is trace to mild mitral regurgitation. No regurgitation noted Right ventricular systolic pressure is normal at < 35 mmHg. There is no ev idence of pulmonary hypertension. The pulmonic valve was not well visualized. The aortic root size is normal. Normal inferior vena cava with normal inspiratory collapse consistent with estimated right atrial pre ssure of 5 mmHg. The pericardium is normal. There is no pericardial effusion. CONCLUSIONS -------- 1. Resting tachycardia (HR>100bpm). 2. This was a technically difficult study with suboptimal views. 3. The left ventricular size is normal. 4. There is mild concentric left ventricular hypertrophy. 5. Overall left ventricular systolic function is normal with, an EF between 60 - 65 %. 6. The right ventricle is mild to moderately enlarged. 7. Normal LA size by volume 22+/-6 ml/m2. 8. 3.5ml of Lumason was utilized for enhancement of images. 9. Aortic valve is trileaflet and is severely thickened. 10. There is wjbkxqbr-yh-sqzlef aortic stenosis present. 11. Peak/mean gradient across the Aortic Valve is 63.11mmHg / 41.67mmHg. 12. There is trace to mild mitral regurgitation. 13. No regurgitation noted 14. Right ventricular systolic pressure is normal at < 35 mmHg. 15. There is no evidence of pulmonary hypertension. 16. The pulmonic valve was not well visualized. 17. The aortic root size is normal. 18. There is no pericardial effusion. IAP DISPLAYS ANALYST: Eduar Garcia RDCS
[2017-12-18 15:12] VITALS: PULSE 76
== END 2017-12-18 15:50 | disposition home or self-care (01) ==
LOC: EC 11:59 → 3OBS 14:18
PROVIDERS: ADMIT Internal Medicine; ATTEND Internal Medicine
DX: R07.89 Other chest pain (principal); I25.10 Atherosclerotic heart disease of native coronary artery without angina pectoris; E78.5 Hyperlipidemia, unspecified; I10 Essential (primary) hypertension; F02.80 Dementia in other diseases classified elsewhere, unspecified severity, without behavioral disturbance, psychotic disturbance, mood disturbance, and anxiety; F01.50 Vascular dementia, unspecified severity, without behavioral disturbance, psychotic disturbance, mood disturbance, and anxiety; M10.9 Gout, unspecified; K21.9 Gastro-esophageal reflux disease without esophagitis; M19.90 Unspecified osteoarthritis, unspecified site; N39.41 Urge incontinence; I69.311 Memory deficit following cerebral infarction; R01.1 Cardiac murmur, unspecified; Z79.899 Other long term (current) drug therapy; Z87.891 Personal history of nicotine dependence; Z82.49 Family history of ischemic heart disease and other diseases of the circulatory system; Z79.82 Long term (current) use of aspirin; Z88.0 Allergy status to penicillin; Z88.2 Allergy status to sulfonamides; Z88.8 Allergy status to other drugs, medicaments and biological substances; Z85.46 Personal history of malignant neoplasm of prostate
CPT/HCPCS: 96372 ×2; 96374; 99285; 36415; 94640 ×3; 94760; 93005; 85379; 80061; 80053; 82550 ×2; 82553 ×2; 83735; 84484 ×2; 85025; 85049; 85610; 85730; 71046; G0378 ×2; C8929; J1644 ×3; Q9950; 93306

== ENCOUNTER → 2018-01-26 | Outpatient (CLI) | payer MEDICARE ==
--- NOTE | 2018-01-26 15:36 | US ---
EXAMINATION TYPE: US thyroid st tissue head/neck DATE OF EXAM: 01/26/2018 COMPARISON: CT chest November 25, 2017 CLINICAL HISTORY: E21.5 Disorder of parathyroid gland. Patient is a poor historian, states no problem s. GLAND SIZE: Right Lobe: 2.9 x 0.7 x 1.7 cm Overall Parenchyma: heterogenous Left Lobe: 3.0 x 1.2 x 2.0 cm Overall Parenchyma: heterogeneous Isthmus Thickness: 0.3 cm NODULES RIGHT: # of nodules measured on right: 0 LEFT: # of nodules measured on left: 0 ISTHMUS: # of nodules measured in the isthmus: 0 Within the right neck, there is a probable lymph node visualized measuring 1.6 x 0.5 x 0.7 cm. Within the left neck, there is a probable lymph node visualized measuring 1.3 x 0.4 x 0.8 cm. Thyroid gland is overall small in size and heterogeneous in appearance without discrete nodule. Benig n-appearing nonenlarged lymph nodes are marked by technologist in the bilateral neck. No suspicious e xtrathyroid nodules are seen to suggest parathyroid adenoma. IMPRESSION: As above.
== END | disposition home or self-care (01) ==
LOC: RADUSWWP 14:12
PROVIDERS: ATTEND Internal Medicine Geriatric Medicine
DX: E21.5 Disorder of parathyroid gland, unspecified (principal)
CPT/HCPCS: 76536

== ENCOUNTER 2018-08-01 09:14 | Emergency (ER) | payer MEDICARE ==
[2018-08-01 09:21] VITALS: RESP 20
--- NOTE | 2018-08-01 09:37 | ED ---
General Adult HPI - General Chief complaint: Fall Stated complaint: FALL Time Seen by Provider: 08/01/18 09:15 Source: EMS, RN notes reviewed Mode of arrival: EMS Limitations: altered mental status - History of Present Illness Initial comments: This is an 82-year-old male who presents emergency Department after having had a fall. Staff says he did hit his head or not sure if he lost consciousness or not. Patient is unable to give any history because of his baseline altered mental status. Patient does not appear to be in any distress and when I touch any areas he does not grimace or show any signs of pain. EMS states he had a contusion on his left shoulder does not appear to be painful to touch. Patient has no signs of trauma to the head according to EMS or any other part of his body besides the shoulder. No other history is available this time. - Related Data Home Medications Medication Instructions Recorded Confirmed Acetaminophen [Tylenol] 500 mg PO Q6H PRN 11/22/17 08/01/18 Aspirin EC [Ecotrin] 325 mg PO HS 11/22/17 08/01/18 Atorvastatin [Lipitor] 20 mg PO HS 11/22/17 08/01/18 Calcium Carbonate [Tums] 1,000 mg PO TID PRN 11/22/17 08/01/18 Donepezil [Aricept] 5 mg PO HS 11/22/17 08/01/18 Fexofenadine HCl 180 mg PO DAILY 11/22/17 08/01/18 Furosemide [Lasix] 40 mg PO DAILY 11/22/17 08/01/18 Gemfibrozil [Lopid] 600 mg PO BID@0700,1600 11/22/17 08/01/18 Lisinopril [Zestril] 20 mg PO DAILY 11/22/17 08/01/18 Melatonin 5 mg PO HS 11/22/17 08/01/18 Multivit-Min/FA/Lycopen/Lutein 1 tab PO DAILY@1100 11/22/17 08/01/18 [Centrum Silver Tablet] Omeprazole 20 mg PO DAILY@0600 11/22/17 08/01/18 Ondansetron HCl [Zofran] 4 mg PO Q8H PRN 11/22/17 08/01/18 Potassium Chloride [K-Tab ER] 10 meq PO DAILY@1100 11/22/17 08/01/18 Sucralfate [Carafate] 1 gm PO ACHS 11/22/17 08/01/18 Metoprolol Succinate (ER) [Toprol 50 mg PO DAILY 08/01/18 08/01/18 Xl] Previous Rx's Medication Instructions Recorded Montelukast [Singulair] 10 mg PO HS #30 tab 11/27/17 Allergies Allergy/AdvReac Type Severity Reaction Status Date / Time allopurinol Allergy Rash/Hives Verified 08/01/18 10:31 Penicillins Allergy Unknown Verified 08/01/18 10:31 Sulfa (Sulfonamide Allergy Unknown Verified 08/01/18 10:31 Antibiotics) Review of Systems ROS Statement: Those systems with pertinent positive or pertinent negative responses have been documented in the HPI. ROS Other: All systems not noted in ROS Statement are negative. 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 gout-allergy to allopurinol, bronchitis, psoriases, prostate cancer 2002(sx and thinks he had raditation ), urinary incont wears a brief. 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 prostatectomy,catarcats Past Anesthesia/Blood Transfusion Reactions: No Reported Reaction Past Psychological History: No Psychological Hx Reported Smoking Status: Former smoker Past Alcohol Use History: None Reported Past Drug Use History: None Reported - Past Family History Brother(s) Family Medical History: Hypertension Father Family Medical History: Congestive Heart Failure (CHF), Hyperlipidemia, Hypertension, Myocardial Infarction ([place]) Mother Family Medical History: Congestive Heart Failure (CHF), Hyperlipidemia, Hypertension, Myocardial Infarction ([place]) General Exam - General Exam Comments Initial Comments: GENERAL: Patient is well-developed and well-nourished. Patient is nontoxic and well- hydrated and is in no acute distress. Patient has no signs of head or neck trauma. ENT: Neck is soft and supple. No significant lymphadenopathy is noted. Oropharynx is clear. Moist mucous membranes. Neck has full range of motion without eliciting any pain. EYES: The sclera were anicteric and conjunctiva were pink and moist. Extraocular movements were intact and pupils were equal round and reactive to light. Eyelids were unremarkable. PULMONARY: Unlabored respirations. Good breath sounds bilaterally. No audible rales rhonchi or wheezing was noted. CARDIOVASCULAR: There is a regular rate and rhythm without any murmurs gallops or rubs. ABDOMEN: Soft and nontender with normal bowel sounds. No palpable organomegaly was noted. There is no palpable pulsatile mass. SKIN: Skin is clear with no lesions or rashes and otherwise unremarkable. NEUROLOGIC: Patient is alert and oriented x3. Cranial nerves II through XII are grossly intact. Motor and sensory are also intact. Normal speech, volume and content. Symmetrical smile. MUSCULOSKELETAL: Patient's full range of motion of all 4 extremities. Patient has a contusion to the lateral aspect of the left shoulder. LYMPHATICS: No significant lymphadenopathy is noted PSYCHIATRIC: Normal psychiatric evaluation. Normal interpersonal interactions appears functionally intact in deals appropriately with others. No signs of depression. No signs of anxiety. Limitations: altered mental status Course Vital Signs 08/01/18 09:18 Temperature 96.9 F L Pulse Rate 100 Respiratory 20 Rate Blood Pressure 164/85 O2 Sat by Pulse 97 Oximetry Medical Decision Making - Medical Decision Making CT of the brain and C-spine are negative for any acute findings. Shoulder x-ray shows no acute abnormality. Disposition Clinical Impression: Fall, Head injury, Shoulder contusion Disposition: HOME SELF-CARE Instructions: Fall Prevention for Older Adults (ED) Is patient prescribed a controlled substance at d/c from ED?: No Referrals: Chava Schmidt MD [Primary Care Provider] - 1-2 days Time of Disposition: 11:14
--- NOTE | 2018-08-01 10:41 | CT ---
EXAMINATION TYPE: CT brain, 2 views wo con DATE OF EXAM: 08/01/2018 COMPARISON: None HISTORY: pain CT DLP: 1243 mGycm Automated exposure control for dose reduction was used. TECHNIQUE: CT scan of the head and cervical spine are performed without contrast. FINDINGS: BRAIN: There are generalized changes of sulcal prominence and ventriculomegaly, compatible with atrop hic change. There is diffuse periventricular white matter lucency, compatible with chronic white tammy er ischemic change. There is evidence of a previous lacunar infarct involving the caudate nucleus on the right. There is no acute focal lesion, mass effect or midline shift identified. I do not see evid ence of intracranial blood. Visualized portions of the paranasal sinuses and mastoids are clear. The bony calvarium is intact. IMPRESSION: 1. NO ACUTE INTRACRANIAL ABNORMALITY. 2. DEGENERATIVE CHANGE. 3. 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 CERVICAL SPINE: Visualized portions of the lungs are clear. Prevertebral soft tissues are normal. There is a grade 1 spondylolisthesis of C2 on C3 and C3 on C4. These are degenerative in nature. Alig nment is otherwise maintained. Atlantoaxial relationships are normal. There is disc space loss and hypertrophic spondylosis at C5-6 and C6-7. There is facet arthropathy at C3-4 and C4-5. There is uncovertebral joint disease present at C5-6 and C6-7. No definite protrusion is seen. No fractures are identified. IMPRESSION: 1. NO ACUTE OSSEOUS LESION. 2. MODERATE DEGENERATIVE CHANGE.
--- NOTE | 2018-08-01 11:00 | XR ---
EXAMINATION TYPE: XR shoulder complete LT , 3 VIEWS DATE OF EXAM ORDERED: 08/01/2018 HISTORY: Pain following trauma. COMPARISON: None. FINDINGS: There are mild hypertrophic changes in the left AC joint. No fracture, dislocation or othe r acute osseous lesion is seen. IMPRESSION: 1. NO ACUTE OSSEOUS LESION. 2. MILD DEGENERATIVE CHANGE.
[2018-08-01 11:31] VITALS: BP 144/84; PULSE 86; TEMP 97.2
== END 2018-08-01 12:30 | disposition home or self-care (01) ==
LOC: EC 09:14
DX: S40.012A Contusion of left shoulder, initial encounter (principal); S09.90XA Unspecified injury of head, initial encounter; F03.90 Unspecified dementia, unspecified severity, without behavioral disturbance, psychotic disturbance, mood disturbance, and anxiety; I10 Essential (primary) hypertension; E78.5 Hyperlipidemia, unspecified; K21.9 Gastro-esophageal reflux disease without esophagitis; Z79.82 Long term (current) use of aspirin; Z79.899 Other long term (current) drug therapy; Z88.0 Allergy status to penicillin; Z88.2 Allergy status to sulfonamides; Z88.8 Allergy status to other drugs, medicaments and biological substances; Z87.891 Personal history of nicotine dependence; Z85.46 Personal history of malignant neoplasm of prostate; W18.09XA Striking against other object with subsequent fall, initial encounter; Y92.009 Unspecified place in unspecified non-institutional (private) residence as the place of occurrence of the external cause
CPT/HCPCS: 70450; 72125; 99284

== ENCOUNTER 2018-08-02 04:29 | Inpatient (IN) | payer MEDICARE ==
[2018-08-02] MEDS ORDERED: SODIUM CHLORIDE 0.9% 1,000 ML IV STA (04:32)
[2018-08-02 05:11] LABS: Basophils # (A) 0.1 k/uL (0-0.2); Basophils % (A) 1 %; Eosinophils # (A) 0.3 k/uL (0-0.7); Eosinophils % (A) 3 %; HCT 49.8 % (39.0-53.0); HGB 16.7 gm/dL (13.0-17.5); Lymphocytes % (A) 9 %; MCH 32.5 pg (25.0-35.0); MCHC 33.6 g/dL (31.0-37.0); MCV 96.7 fL (80.0-100.0); Mean Platelet Volume 7.2; Monocytes # (A) 0.7 k/uL (0-1.0); Monocytes % (A) 6 %; Neutrophils % (A) 80 %; Platelet Count 291 k/uL (150-450); RBC 5.15 m/uL (4.30-5.90); RDW 13.4 % (11.5-15.5); WBC 11.3 k/uL (3.8-10.6)
[2018-08-02 05:22] LABS: INR 1.5 (<1.2); Partial Thromboplastin Time 30.5 sec (22.0-30.0); Prothrombin Time 13.6 sec (9.0-12.0)
[2018-08-02 05:33] LABS: Albumin 4.3 g/dL (3.5-5.0); Calcium 10.7 mg/dL (8.4-10.2); Magnesium 2.1 mg/dL (1.6-2.3); Phosphorus 2.7 mg/dL (2.5-4.5); Potassium 3.8 mmol/L (3.5-5.1); Total Bilirubin 0.6 mg/dL (0.2-1.3); Total Protein 7.9 g/dL (6.3-8.2)
--- NOTE | 2018-08-02 05:42 | XR ---
EXAM: XR Pelvis, 1 or 2 Views CLINICAL HISTORY: ITS.REASON XR Reason: Pain TECHNIQUE: Frontal view of the pelvis. COMPARISON: No relevant prior studies available. IMPRESSION: Moderate bilateral osteoarthrosis. No acute fracture or dislocation. Degenerative changes of the lower lumbar spine. Multiple clips are seen in the pelvis.
--- NOTE | 2018-08-02 05:44 | XR ---
EXAM: XR Chest, one view CLINICAL HISTORY: ITS.REASON XR Reason: Weakness TECHNIQUE: Frontal view of the chest. COMPARISON: 12/17/17 chest x-ray IMPRESSION: Unchanged cardia mediastinal silhouette. Tortuous and atherosclerotic aorta. Left lower lobe opacity may represent infection versus atelectasis. Recommend follow-up after appropriate treatment.
--- NOTE | 2018-08-02 05:52 | CT ---
EXAM: CT Head Without Intravenous Contrast CLINICAL HISTORY: ITS.REASON CT Reason: pain TECHNIQUE: Axial computed tomography images of the head/brain without intravenous contrast. CTDI is 58 mGy and DLP is 1021 mGy-cm. This CT exam was performed using one or more of the following dose reduction techniques: automated exposure control, adjustment of the mA and/or kV according to patient size, and/or use of iterative reconstruction technique. COMPARISON: No relevant prior studies available. FINDINGS: Brain: No hemorrhage, large hypodensity, or mass effect. Chronic microvascular ischemic changes. Linear hyperdensity along the right central sulcus likely represents a vessel. Ventricles: No hydrocephalus. Moderate cerebral volume loss. Bones/joints: Unremarkable. Soft tissues: Unremarkable. Sinuses: Unremarkable. Mastoid air cells: Clear. IMPRESSION: No acute hemorrhage, hydrocephalus, or mass effect. Linear hyperdensity along the right central sulcus likely represents a vessel/developmental venous anomaly. EXAM: CT Cervical Spine Without Intravenous Contrast CLINICAL HISTORY: ITS.REASON CT Reason: pain TECHNIQUE: Axial computed tomography images of the cervical spine without intravenous contrast. CTDI is 13 mGy and DLP is 439 mGy-cm. This CT exam was performed using one or more of the following dose reduction techniques: automated exposure control, adjustment of the mA and/or kV according to patient size, and/or use of iterative reconstruction technique. COMPARISON: No relevant prior studies available. FINDINGS: Vertebrae: No acute fracture. 2 mm retrolisthesis of C2 on C3, 3 mm anterolisthesis of C3 on C4 and 1 mm anterolisthesis of C4 on C5. Discs/spinal canal/neural foramina: No acute findings. No spinal canal stenosis. Severe disc height loss at C6-C7 with endplate sclerotic changes. Severe bilateral facet osteoarthrosis at C3-C4. Multilevel severe osseous neuroforaminal stenosis bilaterally most pronounced at C6- C7. Soft tissues: Unremarkable. IMPRESSION: No acute fracture or subluxation. Severe degenerative changes of the cervical spine.
[2018-08-02 05:56] LABS: Troponin I 0.06 ng/mL (0.000-0.034)
[2018-08-02] MEDS ORDERED: IPRATROPIUM-ALBUTEROL 3 ML NEB INHALATION PRN (06:52)
[2018-08-02] MEDS ORDERED: LEVOFLOXACIN 750MG-D5W PMX 750 MG in DEXTROSE/WATER 1 150ML.BAG IVPB STA (06:52)
[2018-08-02] MEDS ORDERED: PNEUMONIA PROTOCOL UTILIZED 1 EACH MISC PO PRN (06:52)
--- NOTE | 2018-08-02 06:56 | ED ---
General Adult HPI - General Chief complaint: Fall Stated complaint: FALL Time Seen by Provider: 08/02/18 04:32 Source: patient, EMS, RN notes reviewed, old records reviewed Mode of arrival: EMS Limitations: no limitations - History of Present Illness Initial comments: This is an 80-year-old male the ER status post fall. Patient is fall with inability to stand or walk after fall. Patient's poor historian secondary to dementia underlying medical condition. Patient be from EMS and patient's chart. Patient apparently had multiple falls yesterday after each fall patient was unable to get up. Patient states he's confused the catheter out why he can' t get up after a fall - Related Data Home Medications Medication Instructions Recorded Confirmed Acetaminophen [Tylenol] 500 mg PO Q6H PRN 11/22/17 08/01/18 Aspirin EC [Ecotrin] 325 mg PO HS 11/22/17 08/01/18 Atorvastatin [Lipitor] 20 mg PO HS 11/22/17 08/01/18 Calcium Carbonate [Tums] 1,000 mg PO TID PRN 11/22/17 08/01/18 Donepezil [Aricept] 5 mg PO HS 11/22/17 08/01/18 Fexofenadine HCl 180 mg PO DAILY 11/22/17 08/01/18 Furosemide [Lasix] 40 mg PO DAILY 11/22/17 08/01/18 Gemfibrozil [Lopid] 600 mg PO BID@0700,1600 11/22/17 08/01/18 Lisinopril [Zestril] 20 mg PO DAILY 11/22/17 08/01/18 Melatonin 5 mg PO HS 11/22/17 08/01/18 Multivit-Min/FA/Lycopen/Lutein 1 tab PO DAILY@1100 11/22/17 08/01/18 [Centrum Silver Tablet] Omeprazole 20 mg PO DAILY@0600 11/22/17 08/01/18 Ondansetron HCl [Zofran] 4 mg PO Q8H PRN 11/22/17 08/01/18 Potassium Chloride [K-Tab ER] 10 meq PO DAILY@1100 11/22/17 08/01/18 Sucralfate [Carafate] 1 gm PO ACHS 11/22/17 08/01/18 Metoprolol Succinate (ER) [Toprol 50 mg PO DAILY 08/01/18 08/01/18 Xl] Previous Rx's Medication Instructions Recorded Montelukast [Singulair] 10 mg PO HS #30 tab 11/27/17 Allergies Allergy/AdvReac Type Severity Reaction Status Date / Time allopurinol Allergy Rash/Hives Verified 08/02/18 04:38 Penicillins Allergy Unknown Verified 08/02/18 04:38 Sulfa (Sulfonamide Allergy Unknown Verified 08/02/18 04:38 Antibiotics) Review of Systems ROS Statement: Those systems with pertinent positive or pertinent negative responses have been documented in the HPI. ROS Other: All systems not noted in ROS Statement are negative. 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 gout-allergy to allopurinol, bronchitis, psoriases, prostate cancer 2002(sx and thinks he had raditation ), urinary incont wears a brief. 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 prostatectomy,catarcats Past Anesthesia/Blood Transfusion Reactions: No Reported Reaction Past Psychological History: No Psychological Hx Reported Smoking Status: Former smoker Past Alcohol Use History: None Reported Past Drug Use History: None Reported - Past Family History Brother(s) Family Medical History: Hypertension Father Family Medical History: Congestive Heart Failure (CHF), Hyperlipidemia, Hypertension, Myocardial Infarction (CT) Mother Family Medical History: Congestive Heart Failure (CHF), Hyperlipidemia, Hypertension, Myocardial Infarction (CT) General Exam Limitations: no limitations, altered mental status General appearance: alert, in no apparent distress Head exam: Present: atraumatic, normocephalic, normal inspection Eye exam: Present: normal appearance, PERRL, EOMI. Absent: scleral icterus, conjunctival injection, periorbital swelling ENT exam: Present: normal exam, mucous membranes moist Neck exam: Present: normal inspection. Absent: tenderness, meningismus, lymphadenopathy Respiratory exam: Present: normal lung sounds bilaterally. Absent: respiratory distress, wheezes, rales, rhonchi, stridor Cardiovascular Exam: Present: regular rate, normal rhythm, normal heart sounds. Absent: systolic murmur, diastolic murmur, rubs, gallop, clicks GI/Abdominal exam: Present: soft, normal bowel sounds. Absent: distended, tenderness, guarding, rebound, rigid Extremities exam: Present: normal inspection, full ROM, normal capillary refill. Absent: tenderness, pedal edema, joint swelling, calf tenderness Back exam: Present: normal inspection Neurological exam: Present: alert, oriented X3, CN II-XII intact Psychiatric exam: Present: normal affect, normal mood Skin exam: Present: warm, dry, intact, normal color. Absent: rash Course Vital Signs 08/02/18 08/02/18 08/02/18 04:32 04:39 05:30 Temperature 97.7 F Pulse Rate 98 101 H 91 Respiratory 17 17 16 Rate Blood Pressure 159/112 158/76 137/86 O2 Sat by Pulse 88 L 96 95 Oximetry - Reevaluation(s) Reevaluation #1: 08/02/18 06:55 Patient's prior ER visit from today is reviewed Medical Decision Making - Medical Decision Making 82 male the ER status post fall, fall with weakness, patient multiple falls history of inability to get up after falls. Underlying pneumonia will treat for pneumonia, patient left PTOT - Lab Data Result diagrams: 08/02/18 05:00 08/02/18 05:00 Lab Results 08/02/18 08/02/18 08/02/18 Range/Units 05:00 05:00 05:00 WBC 11.3 H (3.8-10.6) k/uL RBC 5.15 (4.30-5.90) m/uL Hgb 16.7 (13.0-17.5) gm/dL Hct 49.8 (39.0-53.0) % MCV 96.7 (80.0-100.0) fL MCH 32.5 (25.0-35.0) pg MCHC 33.6 (31.0-37.0) g/dL RDW 13.4 (11.5-15.5) % Plt Count 291 (150-450) k/uL Neutrophils % 80 % Lymphocytes % 9 % Monocytes % 6 % Eosinophils % 3 % Basophils % 1 % Neutrophils # 9.0 H (1.3-7.7) k/uL Lymphocytes # 1.0 (1.0-4.8) k/uL Monocytes # 0.7 (0-1.0) k/uL Eosinophils # 0.3 (0-0.7) k/uL Basophils # 0.1 (0-0.2) k/uL PT (9.0-12.0) sec INR (<1.2) APTT (22.0-30.0) sec Sodium 141 (137-145) mmol/L Potassium 3.8 (3.5-5.1) mmol/L Chloride 105 (98-107) mmol/L Carbon Dioxide 25 (22-30) mmol/L Anion Gap 11 mmol/L BUN 32 H (9-20) mg/dL Creatinine 1.10 (0.66-1.25) mg/dL Est GFR (CKD-EPI)AfAm 72 (>60 ml/min/1.73 sqM) Est GFR (CKD-EPI)NonAf 62 (>60 ml/min/1.73 sqM) Glucose 130 H (74-99) mg/dL Plasma Lactic Acid Drake (0.7-2.0) mmol/L Calcium 10.7 H (8.4-10.2) mg/dL Phosphorus 2.7 (2.5-4.5) mg/dL Magnesium 2.1 (1.6-2.3) mg/dL Total Bilirubin 0.6 (0.2-1.3) mg/dL AST 26 (17-59) U/L ALT 24 (21-72) U/L Alkaline Phosphatase 118 (38-126) U/L Total Creatine Kinase 279 H (55-170) U/L CK-MB (CK-2) 2.0 (0.0-2.4) ng/mL CK-MB (CK-2) Rel Index 0.7 Troponin I 0.060 H* (0.000-0.034) ng/mL Total Protein 7.9 (6.3-8.2) g/dL Albumin 4.3 (3.5-5.0) g/dL TSH 3.200 (0.465-4.680) mIU/L 08/02/18 08/02/18 Range/Units 05:00 05:00 WBC (3.8-10.6) k/uL RBC (4.30-5.90) m/uL Hgb (13.0-17.5) gm/dL Hct (39.0-53.0) % MCV (80.0-100.0) fL MCH (25.0-35.0) pg MCHC (31.0-37.0) g/dL RDW (11.5-15.5) % Plt Count (150-450) k/uL Neutrophils % % Lymphocytes % % Monocytes % % Eosinophils % % Basophils % % Neutrophils # (1.3-7.7) k/uL Lymphocytes # (1.0-4.8) k/uL Monocytes # (0-1.0) k/uL Eosinophils # (0-0.7) k/uL Basophils # (0-0.2) k/uL PT 13.6 H (9.0-12.0) sec INR 1.5 H (<1.2) APTT 30.5 H (22.0-30.0) sec Sodium (137-145) mmol/L Potassium (3.5-5.1) mmol/L Chloride (98-107) mmol/L Carbon Dioxide (22-30) mmol/L Anion Gap mmol/L BUN (9-20) mg/dL Creatinine (0.66-1.25) mg/dL Est GFR (CKD-EPI)AfAm (>60 ml/min/1.73 sqM) Est GFR (CKD-EPI)NonAf (>60 ml/min/1.73 sqM) Glucose (74-99) mg/dL Plasma Lactic Acid Drake 1.5 (0.7-2.0) mmol/L Calcium (8.4-10.2) mg/dL Phosphorus (2.5-4.5) mg/dL Magnesium (1.6-2.3) mg/dL Total Bilirubin (0.2-1.3) mg/dL AST (17-59) U/L ALT (21-72) U/L Alkaline Phosphatase (38-126) U/L Total Creatine Kinase (55-170) U/L CK-MB (CK-2) (0.0-2.4) ng/mL CK-MB (CK-2) Rel Index Troponin I (0.000-0.034) ng/mL Total Protein (6.3-8.2) g/dL Albumin (3.5-5.0) g/dL TSH (0.465-4.680) mIU/L - Radiology Data Radiology results: report reviewed (CT brain C-spine negative, chest x-ray likely pneumonia, x-ray pelvis is negative for traumatic injury), image reviewed Disposition Clinical Impression: Community acquired bacterial pneumonia, Fall, Weakness, Elevated troponin Disposition: ADMITTED IP TO THIS [facility] Condition: Fair Is patient prescribed a controlled substance at d/c from ED?: No Referrals: Chava Schmidt MD [Primary Care Provider] - 1-2 days
[2018-08-02] MEDS: SODIUM CHLORIDE 0.9% 1,000 ML IV SCH ×3 (07:19→23:14)
--- NOTE | 2018-08-02 10:50 | P.HPIM ---
History of Present Illness H&P Date: 08/02/18 Chief Complaint: Frequent falls and weakness This is 80 years old male [facility] to the emergency department after sustaining fall at the [facility]. Patient presented today as a second visit and 48 hours due to frequent falls and patient stated that he is to ambulate without difficulties and started experiencing generalized weakness and fell twice in the last 48 hours. No head injury no loss of consciousness but patient stated that he would be walking and all of a sudden falling without any predisposing factors. Patient denied any symptoms prior to falls denied being confused or lightheaded after being on the floor denied any jerky movements bowel or bladder incontinence. Patient stated that he experiences occasional dysuria stated that he is being coughing recently without any fever or chills and stated that his appetite has been slightly lower than normal. Patient attributed his falls to uncontrolled hypertension but patient is very poor historian and able to provide detailed information and the emergency department computed tomography scan of the head showed normal finding chest x-ray was suggestive of left lower lobe pneumonia UA was positive and patient was started on antibiotics and admitted to the floor Review of Systems All 14 systems reviewed and negative except as above Past Medical History Past Medical History: Coronary Artery Disease (CAD), Cancer, Dementia, GERD/ Reflux, Hyperlipidemia, Hypertension, Osteoarthritis (OA), Pneumonia Additional Past Medical History / Comment(s): hx pfo-had sx,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 gout-allergy to allopurinol, bronchitis, psoriases, prostate cancer 2002(sx and thinks he had raditation ), urinary incont wears a brief. 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 prostatectomy,catarcats Past Anesthesia/Blood Transfusion Reactions: No Reported Reaction Past Psychological History: No Psychological Hx Reported Smoking Status: Former smoker Past Alcohol Use History: None Reported Past Drug Use History: None Reported - Past Family History Brother(s) Family Medical History: Hypertension Father Family Medical History: Congestive Heart Failure (CHF), Hyperlipidemia, Hypertension, Myocardial Infarction (CT) Mother Family Medical History: Congestive Heart Failure (CHF), Hyperlipidemia, Hypertension, Myocardial Infarction (CT) Medications and Allergies Home Medications Medication Instructions Recorded Confirmed Type Acetaminophen [Tylenol] 500 mg PO Q6H PRN 11/22/17 08/02/18 History Aspirin EC [Ecotrin] 325 mg PO HS 11/22/17 08/02/18 History Atorvastatin [Lipitor] 20 mg PO HS 11/22/17 08/02/18 History Calcium Carbonate [Tums] 1,000 mg PO TID PRN 11/22/17 08/02/18 History Donepezil [Aricept] 5 mg PO HS 11/22/17 08/02/18 History Fexofenadine HCl 180 mg PO DAILY 11/22/17 08/02/18 History Furosemide [Lasix] 40 mg PO DAILY 11/22/17 08/02/18 History Gemfibrozil [Lopid] 600 mg PO BID@0700,1600 11/22/17 08/02/18 History Lisinopril [Zestril] 20 mg PO DAILY 11/22/17 08/02/18 History Melatonin 5 mg PO HS 11/22/17 08/02/18 History Multivit-Min/FA/Lycopen/Lutein 1 tab PO DAILY@1100 11/22/17 08/02/18 History [Centrum Silver Tablet] Omeprazole 20 mg PO DAILY@0600 11/22/17 08/02/18 History Ondansetron HCl [Zofran] 4 mg PO Q8H PRN 11/22/17 08/02/18 History Potassium Chloride [K-Tab ER] 10 meq PO DAILY@1100 11/22/17 08/02/18 History Sucralfate [Carafate] 1 gm PO ACHS 11/22/17 08/02/18 History Montelukast [Singulair] 10 mg PO HS #30 tab 11/27/17 08/02/18 Rx Metoprolol Succinate (ER) [Toprol 50 mg PO DAILY 08/01/18 08/02/18 History Xl] Allergies Allergy/AdvReac Type Severity Reaction Status Date / Time allopurinol Allergy Rash/Hives Verified 08/02/18 10:19 Penicillins Allergy Unknown Verified 08/02/18 10:19 Sulfa (Sulfonamide Allergy Unknown Verified 08/02/18 10:19 Antibiotics) Physical Exam Vitals: Vital Signs Temp Pulse Resp BP Pulse Ox 08/02/18 09:17 102 H 16 109/68 97 08/02/18 08:03 102 H 16 137/87 94 L 08/02/18 07:21 98 F 94 15 131/82 94 L 08/02/18 06:40 98 16 136/78 96 08/02/18 05:30 91 16 137/86 95 08/02/18 04:39 101 H 17 158/76 96 08/02/18 04:32 97.7 F 98 17 159/112 88 L Intake and Output 08/01/18 08/02/18 08/02/18 22:59 06:59 14:59 Other: Weight 68.039 kg Gen.: in stated age, no acute distress Heart: Normal S1-S2 Lungs: Clear to auscultation bilaterally Abdomen: Soft, no tenderness, positive bowel sounds in all 4 quadrant no guarding or rebound Skin: No new rash Psych: Alert and oriented 1-2 Neuro: No focal deficit Results CBC & Chem 7: 08/02/18 05:00 08/02/18 05:00 Labs: Abnormal Lab Results - Last 24 Hours (Table) 08/02/18 08/02/18 08/02/18 Range/Units 05:00 05:00 05:00 WBC 11.3 H (3.8-10.6) k/uL Neutrophils # 9.0 H (1.3-7.7) k/uL PT (9.0-12.0) sec INR (<1.2) APTT (22.0-30.0) sec BUN 32 H (9-20) mg/dL Glucose 130 H (74-99) mg/dL Calcium 10.7 H (8.4-10.2) mg/dL Total Creatine Kinase 279 H (55-170) U/L Troponin I 0.060 H* (0.000-0.034) ng/mL 08/02/18 Range/Units 05:00 WBC (3.8-10.6) k/uL Neutrophils # (1.3-7.7) k/uL PT 13.6 H (9.0-12.0) sec INR 1.5 H (<1.2) APTT 30.5 H (22.0-30.0) sec BUN (9-20) mg/dL Glucose (74-99) mg/dL Calcium (8.4-10.2) mg/dL Total Creatine Kinase (55-170) U/L Troponin I (0.000-0.034) ng/mL Assessment and Plan Assessment: 1. Generalized weakness. 2. Frequent falls. 3. Left lower lobe pneumonia, questionable. 4. Elevated troponin. EKG showed LVH with sinus tachycardia 5. Slight elevation in INR. 6. Coronary artery disease. 7. Advanced dementia. 8. History of gout. 9. GERD. 10. Hypertension. 11. Hyperlipidemia. 12. Asthma. I have discussed with the ER physician current treatment plan we would like to observe the patient treat him with antibiotics for possibility of lower lobe pneumonia I would like also to continue with gentle hydration check on vital signs closely repeat blood work in the morning and consult physical and neck patient will therapy. We may consider neurology consult based on clinical progress. We'll continue with serial troponin and continue his home medication
[2018-08-02] MEDS ORDERED: ONDANSETRON 4 MG TAB PO PRN (14:42)
[2018-08-02] MEDS ORDERED: CALCIUM CARBONATE 500 MG CHEWABLE PO PRN (14:42)
--- NOTE | 2018-08-02 15:44 | XR ---
EXAMINATION TYPE: XR shoulder complete LT, XR clavicle LT DATE OF EXAM: 08/02/2018 CLINICAL HISTORY: Swelling and pain after fall injury. TECHNIQUE: Three views of the left shoulder are obtained. 2 views of left clavicle are acquired. COMPARISON: Left shoulder x-ray from one day earlier. FINDINGS: There is no acute fracture/dislocation evident in the left shoulder. Moderate narrowing at acromioclavicular joint remains present. Glenohumeral joint is maintained. The visualized ribs are intact and unremarkable. Images of the left clavicle show no acute displaced fracture. Overlying soft tissue is unremarkable. Visualized left lung is clear. IMPRESSION: There is no acute fracture or dislocation in the left clavicle or shoulder.
--- NOTE | 2018-08-02 15:45 | XR ---
EXAMINATION TYPE: XR elbow complete LT DATE OF EXAM: 08/02/2018 CLINICAL HISTORY: Swelling and pain within mobility after fall injury TECHNIQUE: Frontal, lateral and oblique images of the left elbow are obtained. COMPARISON: None FINDINGS: There is no acute fracture/dislocation evident in the left elbow. No abnormal fat pad sig ns are seen. Mild to moderate spurring ulnohumeral articulation is present. The overlying soft tissu e appears unremarkable. IMPRESSION: There is no acute fracture or dislocation in the left elbow.
[2018-08-02 16:03] VITALS: BMI 23.4
[2018-08-02] MEDS: FENOFIBRATE 160 MG TAB PO SCH (16:56)
[2018-08-02] MEDS: ENOXAPARIN 30 MG/0.3 ML SYRINGE SQ SCH (16:56)
[2018-08-02] MEDS: SUCRALFATE 1 GM TAB PO SCH ×2 (16:57→20:09)
[2018-08-02] MEDS: LISINOPRIL 20 MG TAB PO SCH (16:57)
[2018-08-02] MEDS: METOPROLOL SUCCINATE (ER) 50 MG TAB.ER.24H PO SCH (16:57)
[2018-08-02] MEDS: MELATONIN 5 MG TABLET PO SCH (20:09)
[2018-08-02] MEDS: DONEPEZIL 5 MG TAB PO SCH (20:09)
[2018-08-02] MEDS: ASPIRIN 325 MG TAB PO SCH (20:09)
[2018-08-02] MEDS: ATORVASTATIN 20 MG TAB PO SCH (20:09)
[2018-08-02] MEDS: MONTELUKAST 10 MG TAB PO SCH (20:09)
[2018-08-03] MEDS: PANTOPRAZOLE 40 MG TABLET PO SCH (06:22)
[2018-08-03] MEDS: SUCRALFATE 1 GM TAB PO SCH ×4 (06:22→20:49)
[2018-08-03] MEDS: FENOFIBRATE 160 MG TAB PO SCH (08:09)
[2018-08-03] MEDS: LORATADINE 10 MG TAB PO SCH (08:09)
[2018-08-03] MEDS: ENOXAPARIN 30 MG/0.3 ML SYRINGE SQ SCH (08:09)
[2018-08-03] MEDS: LISINOPRIL 20 MG TAB PO SCH (08:09)
[2018-08-03] MEDS: METOPROLOL SUCCINATE (ER) 50 MG TAB.ER.24H PO SCH (08:10)
--- NOTE | 2018-08-03 08:14 | XR ---
EXAMINATION TYPE: XR chest 2V DATE OF EXAM: 08/03/2018 COMPARISON: Prior chest x-ray 08/02/[address] 11/25/2017 HISTORY: Pneumonia TECHNIQUE: Frontal and lateral views of the chest are obtained. FINDINGS: There is no significant interval change. No evident pneumothorax. Heart is enlarged. Patch y basilar density is again noted, right hemidiaphragm appears elevated. Pulmonary vascularity and hil a not significantly changed. There are overlying cardiac leads. IMPRESSION: Cardiomegaly, there may be basilar atelectasis versus pneumonia, correlate, some finding s may be chronic.
[2018-08-03] MEDS ORDERED: LEVOFLOXACIN 750MG-D5W PMX 750 MG in DEXTROSE/WATER 1 150ML.BAG IVPB SCH (09:00)
[2018-08-03] MEDS ORDERED: FUROSEMIDE 40 MG TAB PO SCH (09:00)
[2018-08-03] MEDS: POTASSIUM CITRATE 10 MEQ TABLET.ER PO SCH (10:09)
[2018-08-03 10:56] LABS: Appearance,Urine Clear (Clear); Bilirubin,Urine Negative (Negative); Blood,Urine Negative (Negative); Color,Urine Yellow; Glucose,Urine (UA) Negative (Negative); Ketones,Urine Negative (Negative); Leukocyte Esterase,Urine Negative (Negative); Nitrite,Urine Negative (Negative); PH, Urine 5.5 (5.0-8.0); Protein,Urine Negative (Negative); Specific Gravity,Urine 1.015 (1.001-1.035); Urobilinogen,Urine <2.0 mg/dL (<2.0)
[2018-08-03 10:57] LABS: Glucose,Whole Blood 138 mg/dL (75-99)
[2018-08-03] MEDS: INSULIN ASPART 100 UNIT/ML 1 ML 10 ML VIAL SQ SCH ×3 (11:57→20:50)
[2018-08-03] MEDS: SODIUM CHLORIDE 0.9% 1,000 ML IV SCH (11:58)
--- NOTE | 2018-08-03 13:31 | P.PN ---
Subjective Progress Note Date: 08/03/18 This is 80 years old male resident of senior care presents to the emergency department after sustaining fall at the senior care. Patient presented today as a second visit and 48 hours due to frequent falls and patient stated that he is to ambulate without difficulties and started experiencing generalized weakness and fell twice in the last 48 hours. No head injury no loss of consciousness but patient stated that he would be walking and all of a sudden falling without any predisposing factors. Patient denied any symptoms prior to falls denied being confused or lightheaded after being on the floor denied any jerky movements bowel or bladder incontinence. Patient stated that he experiences occasional dysuria stated that he is being coughing recently without any fever or chills and stated that his appetite has been slightly lower than normal. Patient attributed his falls to uncontrolled hypertension but patient is very poor historian and able to provide detailed information and the emergency department computed tomography scan of the head showed normal finding chest x-ray was suggestive of left lower lobe pneumonia UA was positive and patient was started on antibiotics and admitted to the floor 08/03: blood culture status received. Urine culture has not been collected as well as sputum culture not collected. PT, OT and speech therapies in progress. Nursing to collect urinalysis and urine culture this morning. IV fluids will be decreased to 50 mL/h. Repeat troponins will be ordered. Orthostatics are negative. Blood pressure is on the low side for which lisinopril will be discontinued. Repeat chest x-ray ordered. Blood sugar was 138 and patient started on NovoLog scale. He does have a history of diabetes mellitus type 2 but has been off medication. Hemoglobin A1c ordered. Patient denies having any cough or difficulty breathing. Patient resides at [facility]. PT and OT to evaluate. Objective - Vital Signs Vital signs: Vital Signs Temp 98.0 F 08/03/18 00:00 Pulse 93 08/03/18 03:41 Resp 17 08/03/18 03:41 BP 129/72 08/03/18 03:40 Pulse Ox 92 L 08/03/18 03:42 Intake & Output 08/02/18 08/03/18 08/03/18 18:59 06:59 18:59 Intake Total 20 160 240 Output Total 530 Balance 20 -370 240 Weight 68 kg 72 kg Intake: IV 160 Sodium Chloride 0.9% 1, 160 000 ml @ 100 mls/hr IV . Q10H [facility] Rx#:[id number] Intake, IV Titration 20 Amount Sodium Chloride 0.9% 1, 20 000 ml @ 100 mls/hr IV . Q10H [facility] Rx#:[id number] Oral 240 Output: Urine 530 Other: Voiding Method Urinal # Voids 1 - Exam Gen.: in stated age, no acute distress Heart: Normal S1-S2 Lungs: Clear to auscultation bilaterally Abdomen: Soft, no tenderness, positive bowel sounds in all 4 quadrant no guarding or rebound Skin: No new rash Psych: Alert and oriented 1-2 Neuro: No focal deficit - Labs CBC & Chem 7: 08/02/18 05:00 08/02/18 05:00 Assessment and Plan Plan: 1. Generalized weakness. 2. Frequent falls. 3. Left lower lobe pneumonia, questionable.continue DuoNeb treatments as needed and Levaquin 750 mg IV piggyback daily. Repeat chest x-ray. 4. Elevated troponin. EKG showed LVH with sinus tachycardia 5. Slight elevation in INR. 6. Coronary artery disease. 7. Vascular dementiawith short-term memory loss. 8. History of gout. 9. GERDangiography prophylaxis. Continue Protonixand Carafate. 10. Hypertension. continue Toprol-XL. Lisinopril and Lasix discontinued. 11. Hyperlipidemia. 12. Seasonal ALLERGIES. Continue Singulairand Claritin. 13. Hyperlipidemia. Continue atorvastatinand fenofibrate. 14. DVT prophylaxis. Continue Lovenox. Discharge plan: Return to [facility] Impression and plan of care have been directed as dictated by the signing physician. Isha Alcantar nurse practitioner acting as scribe for signing physician.
[2018-08-03 16:42] LABS: Glucose,Whole Blood 109 mg/dL (75-99)
[2018-08-03 17:38] LABS: Hemoglobin A1C 6.3 % (4.0-6.0)
[2018-08-03 20:46] LABS: Glucose,Whole Blood 125 mg/dL (75-99)
[2018-08-03] MEDS: ATORVASTATIN 20 MG TAB PO SCH (20:49)
[2018-08-03] MEDS: ASPIRIN 325 MG TAB PO SCH (20:49)
[2018-08-03] MEDS: ACETAMINOPHEN TAB 500 MG TAB PO PRN (20:49)
[2018-08-03] MEDS: MONTELUKAST 10 MG TAB PO SCH (20:50)
[2018-08-03] MEDS: MELATONIN 5 MG TABLET PO SCH (20:50)
[2018-08-03] MEDS: DONEPEZIL 5 MG TAB PO SCH (20:50)
[2018-08-03 21:57] VITALS: RESP 17
[2018-08-04 06:03] LABS: Glucose,Whole Blood 105 mg/dL (75-99)
[2018-08-04] MEDS: INSULIN ASPART 100 UNIT/ML 1 ML 10 ML VIAL SQ SCH ×4 (06:44→21:08)
[2018-08-04] MEDS: PANTOPRAZOLE 40 MG TABLET PO SCH (06:47)
[2018-08-04] MEDS: SUCRALFATE 1 GM TAB PO SCH ×4 (06:47→20:23)
[2018-08-04 07:48] LABS: HCT 41.7 % (39.0-53.0); HGB 13.8 gm/dL (13.0-17.5); MCHC 33.1 g/dL (31.0-37.0); MCV 96.9 fL (80.0-100.0); Mean Platelet Volume 7.1; Platelet Count 239 k/uL (150-450); RBC 4.31 m/uL (4.30-5.90); RDW 13.4 % (11.5-15.5); WBC 9.1 k/uL (3.8-10.6)
[2018-08-04 07:59] LABS: Albumin 3.2 g/dL (3.5-5.0); Calcium 9.5 mg/dL (8.4-10.2); Potassium 3.4 mmol/L (3.5-5.1); Total Bilirubin 0.6 mg/dL (0.2-1.3)
[2018-08-04] MEDS: LEVOFLOXACIN 750 MG TAB PO SCH (09:11)
[2018-08-04] MEDS: POTASSIUM CITRATE 10 MEQ TABLET.ER PO SCH (09:11)
[2018-08-04] MEDS: ENOXAPARIN 30 MG/0.3 ML SYRINGE SQ SCH (09:11)
[2018-08-04] MEDS: FENOFIBRATE 160 MG TAB PO SCH (09:11)
[2018-08-04] MEDS: LORATADINE 10 MG TAB PO SCH (09:11)
[2018-08-04] MEDS: METOPROLOL SUCCINATE (ER) 50 MG TAB.ER.24H PO SCH (09:11)
[2018-08-04 11:26] LABS: Glucose,Whole Blood 102 mg/dL (75-99)
[2018-08-04] MEDS: SODIUM CHLORIDE 0.9% 1,000 ML IV SCH (12:13)
[2018-08-04 16:30] LABS: Glucose,Whole Blood 138 mg/dL (75-99)
[2018-08-04] MEDS: ACETAMINOPHEN TAB 500 MG TAB PO PRN (20:22)
[2018-08-04] MEDS: MONTELUKAST 10 MG TAB PO SCH (20:23)
[2018-08-04] MEDS: MELATONIN 5 MG TABLET PO SCH (20:23)
[2018-08-04] MEDS: ASPIRIN 325 MG TAB PO SCH (20:23)
[2018-08-04] MEDS: DONEPEZIL 5 MG TAB PO SCH (20:23)
[2018-08-04] MEDS: ATORVASTATIN 20 MG TAB PO SCH (20:23)
--- NOTE | 2018-08-04 20:31 | P.PN ---
Subjective Progress Note Date: 08/04/18 This is 80 years [facility] emergency department [facility]. Patient presented today as a second visit and 48 hours due to frequent falls and patient stated that he is to ambulate without difficulties and started experiencing generalized weakness and fell twice in the last 48 hours. No head injury no loss of consciousness but patient stated that he would be walking and all of a sudden falling without any predisposing factors. Patient denied any symptoms prior to falls denied being confused or lightheaded after being on the floor denied any jerky movements bowel or bladder incontinence. Patient stated that he experiences occasional dysuria stated that he is being coughing recently without any fever or chills and stated that his appetite has been slightly lower than normal. Patient attributed his falls to uncontrolled hypertension but patient is very poor historian and able to provide detailed information and the emergency department computed tomography scan of the head showed normal finding chest x-ray was suggestive of left lower lobe pneumonia UA was positive and patient was started on antibiotics and admitted to the floor 08/03: blood culture status received. Urine culture has not been collected as well as sputum culture not collected. PT, OT and speech therapies in progress. Nursing to collect urinalysis and urine culture this morning. IV fluids will be decreased to 50 mL/h. Repeat troponins will be ordered. Orthostatics are negative. Blood pressure is on the low side for which lisinopril will be discontinued. Repeat chest x-ray ordered. Blood sugar was 138 and patient started on NovoLog scale. He does have a history of diabetes mellitus type 2 but has been off medication. Hemoglobin A1c ordered. Patient denies having any cough or difficulty breathing. Patient resides at [facility]. PT and OT to evaluate. 08/04:Patient has been afebrile. Pulse ox 93% on room air. White count 9.1, potassium 3.4. troponins came back 0.034, 0.027, 0.028. Repeat chest xray reveals cardiomegaly, basilar atelectasis verses pneumonia. plan to monitor patient overnight and discharge to [facility] tomorrow. Objective - Vital Signs Vital signs: Vital Signs Temp 97.8 F 08/04/18 09:13 Pulse 90 08/04/18 09:13 Resp 17 08/04/18 09:13 BP 122/76 08/04/18 09:13 Pulse Ox 93 L 08/04/18 09:13 Intake & Output 08/03/18 08/04/18 08/04/18 18:59 06:59 18:59 Intake Total 720 180 Output Total 500 700 Balance 220 -700 180 Weight 72.6 kg Intake: Oral 720 180 Output: Urine 500 700 Other: Voiding Method Urinal Urinal Urinal - Exam Gen.: in stated age, no acute distress Heart: Normal S1-S2 Lungs: Crackles lef5 base, no intercostal retractions Abdomen: Soft, no tenderness, positive bowel sounds in all 4 quadrant no guarding or rebound Skin: No new rash Psych: Alert and oriented 1-2 Neuro: No focal deficit - Labs CBC & Chem 7: 08/04/18 06:59 08/04/18 06:59 Labs: Abnormal Lab Results - Last 24 Hours (Table) 08/03/18 08/03/18 08/03/18 Range/Units 10:53 11:26 16:28 Potassium (3.5-5.1) mmol/L BUN (9-20) mg/dL POC Glucose (mg/dL) 138 H 109 H (75-99) mg/dL Hemoglobin A1c 6.3 H (4.0-6.0) % ALT (21-72) U/L Total Protein (6.3-8.2) g/dL Albumin (3.5-5.0) g/dL 08/03/18 08/04/18 08/04/18 Range/Units 20:45 06:01 06:59 Potassium 3.4 L (3.5-5.1) mmol/L BUN 21 H (9-20) mg/dL POC Glucose (mg/dL) 125 H 105 H (75-99) mg/dL Hemoglobin A1c (4.0-6.0) % ALT 20 L (21-72) U/L Total Protein 6.0 L (6.3-8.2) g/dL Albumin 3.2 L (3.5-5.0) g/dL Microbiology - Last 24 Hours (Table) 08/02/18 07:15 Blood Culture - Preliminary Blood No Growth after 48 hours 08/03/18 10:42 Urine Culture - Preliminary Urine,Clean Catch Assessment and Plan Plan: 1. Generalized weakness. 2. Frequent falls. 3. Left lower lobe pneumonia. continue DuoNeb treatments as needed and Levaquin 750 mg IV piggyback daily changed to oral. Repeat chest x-ray. 4. Elevated troponin. EKG showed LVH with sinus tachycardia 5. Slight elevation in INR. 6. Coronary artery disease. 7. Vascular dementiawith short-term memory loss. 8. History of gout. 9. GERDangiography prophylaxis. Continue Protonixand Carafate. 10. Hypertension. continue Toprol-XL. Lisinopril and Lasix discontinued. 11. Hyperlipidemia. 12. Seasonal ALLERGIES. Continue Singulairand Claritin. 13. Hyperlipidemia. Continue atorvastatinand fenofibrate. 14. DVT prophylaxis. Continue Lovenox. Discharge plan: [facility] tomorrow Impression and plan of care have been directed as dictated by the signing physician. Isha Alcantar nurse practitioner acting as scribe for signing physician.
[2018-08-04] MEDS ORDERED: POTASSIUM CHLORIDE ER 20 MEQ TAB.ER PO STA (20:36)
[2018-08-04 21:17] LABS: Glucose,Whole Blood 112 mg/dL (75-99)
[2018-08-05] MEDS: ACETAMINOPHEN TAB 500 MG TAB PO PRN (04:10)
[2018-08-05 06:06] LABS: Glucose,Whole Blood 106 mg/dL (75-99)
[2018-08-05] MEDS: INSULIN ASPART 100 UNIT/ML 1 ML 10 ML VIAL SQ SCH (06:25)
[2018-08-05] MEDS: SUCRALFATE 1 GM TAB PO SCH (06:26)
[2018-08-05] MEDS: PANTOPRAZOLE 40 MG TABLET PO SCH (06:26)
[2018-08-05] MEDS: ENOXAPARIN 30 MG/0.3 ML SYRINGE SQ SCH (09:01)
[2018-08-05] MEDS: LORATADINE 10 MG TAB PO SCH (09:01)
[2018-08-05] MEDS: POTASSIUM CITRATE 10 MEQ TABLET.ER PO SCH (09:02)
[2018-08-05] MEDS: LEVOFLOXACIN 750 MG TAB PO SCH (09:02)
[2018-08-05] MEDS: FENOFIBRATE 160 MG TAB PO SCH (09:02)
[2018-08-05] MEDS: METOPROLOL SUCCINATE (ER) 50 MG TAB.ER.24H PO SCH (09:02)
[2018-08-05 09:11] VITALS: BP 120/73; PULSE 110; TEMP 98.3
--- NOTE | 2018-08-05 10:15 | P.DS ---
Providers Date of admission: 08/02/18 15:33 Expected date of discharge: 08/04/18 Attending physician: Sari Holman Primary care physician: [facility] Course: This is a 80-year-old male residing at [facility] presents to the emergency department after sustaining fall at the skilled nursing. Patient presented today as a second visit and 48 hours due to frequent falls and patient stated that he is to ambulate without difficulties and started experiencing generalized weakness and fell twice in the last 48 hours. No head injury no loss of consciousness but patient stated that he would be walking and all of a sudden falling without any predisposing factors. Patient denied any symptoms prior to falls denied being confused or lightheaded after being on the floor denied any jerky movements bowel or bladder incontinence. Patient stated that he experiences occasional dysuria stated that he is being coughing recently without any fever or chills and stated that his appetite has been slightly lower than normal. Patient attributed his falls to uncontrolled hypertension but patient is very poor historian and able to provide detailed information and the emergency department computed tomography scan of the head showed normal finding chest x-ray was suggestive of left lower lobe pneumonia UA was positive and patient was started on antibiotics and admitted to the floor 08/03: blood culture status received. Urine culture has not been collected as well as sputum culture not collected. PT, OT and speech therapies in progress. Nursing to collect urinalysis and urine culture this morning. IV fluids will be decreased to 50 mL/h. Repeat troponins will be ordered. Orthostatics are negative. Blood pressure is on the low side for which lisinopril will be discontinued. Repeat chest x-ray ordered. Blood sugar was 138 and patient started on NovoLog scale. He does have a history of diabetes mellitus type 2 but has been off medication. Hemoglobin A1c ordered. Patient denies having any cough or difficulty breathing. Patient resides at [facility]. PT and OT to evaluate. 08/04:Patient has been afebrile. Pulse ox 93% on room air. White count 9.1, potassium 3.4. troponins came back 0.034, 0.027, 0.028. Repeat chest xray reveals cardiomegaly, basilar atelectasis verses pneumonia. plan to monitor patient overnight and discharge to [facility] tomorrow. 08/05: Patient has been accepted at [facility]. Temperature max 100.1. Heart rate is running in the 90s. Pulse ox is 91-95% on 2 L nasal cannula. Patient will be discharged to [facility] today in stable condition. Discharge diagnoses: 1. Generalized weakness. 2. Frequent falls. 3. Left lower lobe pneumonia. 4. Elevated troponin. EKG showed LVH with sinus tachycardia 5. Slight elevation in INR. 6. Coronary artery disease. 7. Vascular dementia with short-term memory loss. 8. History of gout. 9. GERD. 10. Hypertension. 11. Hyperlipidemia. 12. Seasonal ALLERGIES. 13. Hyperlipidemia. Discharge plan: [facility] tomorrow Impression and plan of care have been directed as dictated by the signing physician. Isha Alcantar nurse practitioner acting as scribe for signing physician. Patient Condition at Discharge: Good Plan - Discharge Summary Discharge Rx Participant: Yes New Discharge Prescriptions: New Ipratropium-Albuterol Nebulize [Duoneb 0.5 mg-3 mg/3 ml Soln] 3 ml INHALATION RT-Q4H PRN ampul.neb PRN Reason: shortness of breath Levofloxacin [Levaquin] 750 mg PO DAILY #5 tab Continue Ondansetron HCl [Zofran] 4 mg PO Q8H PRN PRN Reason: Nausea Calcium Carbonate [Tums] 1,000 mg PO TID PRN PRN Reason: GERD Acetaminophen [Tylenol] 500 mg PO Q6H PRN PRN Reason: Pain Omeprazole 20 mg PO DAILY@0600 Gemfibrozil [Lopid] 600 mg PO BID@0700,1600 Melatonin 5 mg PO HS Atorvastatin [Lipitor] 20 mg PO HS Potassium Chloride [K-Tab ER] 10 meq PO DAILY@1100 Multivit-Min/FA/Lycopen/Lutein [Centrum Silver Tablet] 1 tab PO DAILY@1100 Fexofenadine HCl 180 mg PO DAILY Aspirin EC [Ecotrin] 325 mg PO HS Donepezil [Aricept] 5 mg PO HS Sucralfate [Carafate] 1 gm PO ACHS Montelukast [Singulair] 10 mg PO HS #30 tab Metoprolol Succinate (ER) [Toprol XL] 50 mg PO DAILY Discontinued Lisinopril [Zestril] 20 mg PO DAILY Furosemide [Lasix] 40 mg PO DAILY Discharge Medication List Acetaminophen [Tylenol] 500 mg PO Q6H PRN 11/22/17 [History] Aspirin EC [Ecotrin] 325 mg PO HS 11/22/17 [History] Atorvastatin [Lipitor] 20 mg PO HS 11/22/17 [History] Calcium Carbonate [Tums] 1,000 mg PO TID PRN 11/22/17 [History] Donepezil [Aricept] 5 mg PO HS 11/22/17 [History] Fexofenadine HCl 180 mg PO DAILY 11/22/17 [History] Gemfibrozil [Lopid] 600 mg PO BID@0700,1600 11/22/17 [History] Melatonin 5 mg PO HS 11/22/17 [History] Multivit-Min/FA/Lycopen/Lutein [Centrum Silver Tablet] 1 tab PO DAILY@1100 11/22 [History] Omeprazole 20 mg PO DAILY@0600 11/22/17 [History] Ondansetron HCl [Zofran] 4 mg PO Q8H PRN 11/22/17 [History] Potassium Chloride [K-Tab ER] 10 meq PO DAILY@1100 11/22/17 [History] Sucralfate [Carafate] 1 gm PO ACHS 11/22/17 [History] Montelukast [Singulair] 10 mg PO HS #30 tab 11/27/17 [Rx] Metoprolol Succinate (ER) [Toprol XL] 50 mg PO DAILY 08/01/18 [History] Ipratropium-Albuterol Nebulize [Duoneb 0.5 mg-3 mg/3 ml Soln] 3 ml INHALATION RT -Q4H PRN ampul.neb 08/04/18 [Rx] Levofloxacin [Levaquin] 750 mg PO DAILY #5 tab 08/04/18 [Rx] Follow up Appointment(s)/Referral(s): Chava Schmidt MD [Primary Care Provider] - 08/10/18 11:00 am Patient Instructions/Handouts: Fall Prevention for Older Adults (DC), Pneumonia (DC)
== END 2018-08-05 11:48 | DRG 195 ==
LOC: EC 04:29 → 6SEL 06:52 → OBSVTOIN 15:33
PROVIDERS: ADMIT Internal Medicine; ATTEND Internal Medicine
DX: J18.9 Pneumonia, unspecified organism (principal); E11.9 Type 2 diabetes mellitus without complications; E78.5 Hyperlipidemia, unspecified; F01.50 Vascular dementia, unspecified severity, without behavioral disturbance, psychotic disturbance, mood disturbance, and anxiety; I11.9 Hypertensive heart disease without heart failure; I25.10 Atherosclerotic heart disease of native coronary artery without angina pectoris; J45.909 Unspecified asthma, uncomplicated; K21.9 Gastro-esophageal reflux disease without esophagitis; R29.6 Repeated falls; M10.9 Gout, unspecified; M19.90 Unspecified osteoarthritis, unspecified site; L40.9 Psoriasis, unspecified; R53.1 Weakness; R77.9 Abnormality of plasma protein, unspecified; R79.1 Abnormal coagulation profile; Z87.891 Personal history of nicotine dependence; Z86.73 Personal history of transient ischemic attack (TIA), and cerebral infarction without residual deficits; Z85.46 Personal history of malignant neoplasm of prostate; Z79.82 Long term (current) use of aspirin; Z79.899 Other long term (current) drug therapy; Z88.0 Allergy status to penicillin; Z88.2 Allergy status to sulfonamides; Z88.8 Allergy status to other drugs, medicaments and biological substances; Z87.01 Personal history of pneumonia (recurrent); Z90.49 Acquired absence of other specified parts of digestive tract; Z82.49 Family history of ischemic heart disease and other diseases of the circulatory system; Z84.89 Family history of other specified conditions; W19.XXXA Unspecified fall, initial encounter; Y92.129 Unspecified place in nursing home as the place of occurrence of the external cause
CPT/HCPCS: 36415; 70450; 71045; 71046; 72125; 72170; 80053; 81003; 82550; 82553; 83036; 83605; 83735; 84100; 84443; 84484; 85025; 85027; 85610; 85730; 87040; 87086; 93005; 96361; 96365; 96366; 99285